=== PATIENT | female | born 1945 | race Caucasian/White ===

== ENCOUNTER 2017-05-07 12:54 | Day surgery (SDC) | payer OTHER ==
[2017-05-03 14:53] VITALS: BMI 26.6
[2017-05-07 14:08] VITALS: BP 120/64; PULSE 88; TEMP 98
--- NOTE | 2017-05-07 17:36 | EKG ---
Test Reason : Blood Pressure : / mmHG Vent. Rate : 077 BPM Atrial Rate : 077 BPM P-R Int : 130 ms QRS Dur : 072 ms QT Int : 380 ms P-R-T Axes : 048 011 037 degrees QTc Int : 430 ms NORMAL SINUS RHYTHM MINIMAL VOLTAGE CRITERIA FOR LVH, MAY BE NORMAL VARIANT BORDERLINE ECG NO PREVIOUS ECGS AVAILABLE Confirmed by PEBBLES VALENTE MD ([id number]) on 05/07/2017 5:36:18 PM Referred By: JIMMY VAUGHN Confirmed By:PEBBLES VALENTE MD
== END 2017-05-07 15:21 | disposition home or self-care (01) ==
LOC: JASUSAT 12:54 → UNDOADMIN 12:54 → JSAMEDAYSX 12:54 → EDSTATUS 14:15 → UNDODISIN 15:21 → JASUSAT 15:21
PROVIDERS: ATTEND Orthopaedic Surgery Orthopaedic Surgery of the Spine
PROC: 0SJ Lower Joints, Inspection (ICD-10-PCS; principal; 2017-05-07)
DX: Z53.8 Procedure and treatment not carried out for other reasons (principal)
CPT/HCPCS: 86850; 86900; 86901; 93005; 93010

== ENCOUNTER 2017-05-14 09:48 | Inpatient (IN) | payer OTHER ==
[2017-05-10 12:46] VITALS: BMI 26.6
[2017-05-14] MEDS ORDERED: HEPARIN NA (PORCINE) 5,000 UNITS/ML 1ML VIAL ONE ×2 (13:24→16:40)
[2017-05-14] MEDS ORDERED: THROMBIN (BOVINE) 5,000 UNIT VIAL TP ONE (13:24)
[2017-05-14] MEDS ORDERED: SUCCINYLCHOLINE CHLORIDE 200 MG/10 ML VIAL ONE (13:52)
[2017-05-14] MEDS ORDERED: fentaNYL CITRATE 250 MCG/5 ML VIAL ONE (13:52)
[2017-05-14] MEDS ORDERED: PROPOFOL 20 ML ONE ×18 (13:52→18:24)
[2017-05-14] MEDS ORDERED: MIDAZOLAM HCL 2 MG/2 ML SINGLE DOSE VIAL ONE ×2 (13:52→15:45)
[2017-05-14] MEDS ORDERED: LIDOCAINE HCL/PF 2% SDV 5ML VIAL ONE (13:53)
[2017-05-14] MEDS ORDERED: ceFAZolin SODIUM 1 GM VIAL ONE ×2 (13:57→23:06)
[2017-05-14] MEDS ORDERED: VANCOMYCIN 1,000 MG VIAL (RESTRICTED TO ID ONLY) ONE (13:58)
[2017-05-14] MEDS ORDERED: VANCOMYCIN 1,000 MG VIAL (RESTRICTED TO ID ONLY) IVPB ONE (14:55)
[2017-05-14] MEDS ORDERED: ePHEDrine SULFATE 50 MG/1 ML AMPULE ONE (15:00)
[2017-05-14] MEDS ORDERED: ceFAZolin SODIUM 1 GM VIAL IVPB ONE (15:05)
[2017-05-14] MEDS ORDERED: DEXAMETHASONE SOD PHOSPHATE 4 MG/1 ML VIAL ONE (15:34)
[2017-05-14] MEDS ORDERED: TRANEXAMIC ACID 1000 MG/10 ML VIAL ONE ×2 (15:51→17:15)
[2017-05-14] MEDS ORDERED: PHENYLEPHRINE HCL 10 MG/1 ML SINGLE DOSE VIAL ONE (20:13)
[2017-05-14] MEDS ORDERED: ONDANSETRON 4 MG/2 ML VIAL ONE (20:13)
[2017-05-14] MEDS ORDERED: ONDANSETRON 4 MG/2 ML VIAL IVPUSH PRN ×2 (20:28→21:36)
[2017-05-14] MEDS ORDERED: ACETAMINOPHEN 1000 MG/100 ML VIAL (NON FORMULARY) IVPB SCH (20:30)
[2017-05-14] MEDS ORDERED: LACTATED RINGERS SOLUTION 1,000 ML IV SCH (20:30)
--- NOTE | 2017-05-14 20:40 | PN ---
Progress Note (short form) - Note Progress Note: 71F s/p L2-S1 laminectomies & posterior decompression, Beard-Macias Osteotomies T10/T11, L1/2, L2/3, L3/4, L4/5, T6-S1 PISF POD #0. -Pain control. -Mechanical DVT PPx. only: GEETHA's, SCD's. -Incentive spirometry. -PT/OT/Rehab, OOB. -WBAT B/L UE & LE. -Medina care; d/c medina when ambulating. -NPO until flatus. -Kiah-op antibiotics: ANCEF & VANCOMYCIN.. -Admit to ICU. -Care per medical hospitalist team when out of ICU. -Will follow. Lauri Connors MD (Orthopaedic Surgery).
--- NOTE | 2017-05-14 20:44 | OP ---
Operative Note - Note: Operative Date: 05/14/17 Pre-Operative Diagnosis: Lumbar stenosis. Femoral neuropathy. Adult degenerative scoliosis Operation: L2-S1 laminectomies & posterior decompression. Beard-Macias Osteotomies T10/T11, L1/2, L2/3, L3/4, L4/5. T6-S1 Posterior Instrumented Spinal Fusion. Bone autograft. Allograft Findings: Intake: 2U PRBC 450cc Cell Saver 4L crystalloid EBL: 1600cc Post-Operative Diagnosis: Same as Pre-op Surgeon: Xiang Connors Human Resources Representative: Lauri Connors Anesthesiologist/TOPOLOGY PROFESSOR: Juan Ramon Lopez Anesthesia: General Specimens Removed: Bone. Soft tissue Estimated Blood Loss (mls): 1,600 Drains & Tubes with Location: 1 x superficial HemoVac
[2017-05-14] MEDS ORDERED: PROMETHAZINE HCL 25 MG/1 ML VIAL IVPUSH PRN (21:04)
[2017-05-14] MEDS ORDERED: HYDROmorphone *PCA* 10MG/50ML DISP.SYRIN PCA SCH (21:15)
[2017-05-14] MEDS ORDERED: HYDROmorphone *PCA* 6MG/30ML DISP.SYRIN PCA ONE (21:17)
[2017-05-14] MEDS ORDERED: ACETAMINOPHEN INJECTION 100 ML IVPB ONE (21:18)
[2017-05-14] MEDS: LACTATED RINGERS SOLUTION 1,000 ML IV SCH (21:30)
[2017-05-14] MEDS ORDERED: amLODIPine BESYLATE 5 MG TABLET (FP) PO SCH ×2 (22:00)
[2017-05-14] MEDS: CEFAZOLIN 1 GM PUSH 1 GM/10 ML DISP.SYRIN IVPUSH SCH (23:00)
[2017-05-14] MEDS ORDERED: CEFAZOLIN 1 GM PUSH 1 GM/10 ML SYRINGE IVPUSH SCH (23:30)
[2017-05-15] MEDS: VANCOMYCIN 1,000 MG in DEXTROSE 5%-WATER - 250 ML IVPB SCH ×2 (01:54→16:33)
[2017-05-15] MEDS ORDERED: VANCOMYCIN 1,000 MG in DEXTROSE 5%-WATER - 250 ML IVPB ONE (02:00)
[2017-05-15] MEDS ORDERED: VANCOMYCIN 1,000 MG in DEXTROSE 5%-WATER - 250 ML IVPB SCH (02:00)
[2017-05-15 06:25] LABS: HEMATOCRIT 37.2 % (32.4-45.2); HEMOGLOBIN 12.8 GM/dL (10.7-15.3); MCH 30.8 pg (25.7-33.7); MCHC 34.3 g/dl (32.0-36.0); MEAN CELL VOLUME 89.7 fl (80-96); MEAN PLT VOLUME 8.6 fl (7.5-11.1); PLATELET COUNT 166 K/MM3 (134-434); RBC 4.14 M/mm3 (3.60-5.2); WHITE BLOOD COUNT 10.6 K/mm3 (4.0-10.0)
[2017-05-15] MEDS: LACTATED RINGERS SOLUTION 1,000 ML IV SCH ×2 (06:41→08:50)
[2017-05-15] MEDS: CEFAZOLIN 1 GM PUSH 1 GM/10 ML DISP.SYRIN IVPUSH SCH ×2 (06:42→09:47)
[2017-05-15] MEDS: ACETAMINOPHEN 1000 MG/100 ML VIAL (NON FORMULARY) IVPB SCH ×2 (06:51→12:18)
[2017-05-15] MEDS: LEVOTHYROXINE NA 100 MCG TABLET (FP) PO SCH (06:52)
[2017-05-15 06:55] LABS: ANION GAP 5 (8-16); BLOOD UREA NITROGEN 16 mg/dL (7-18); CALCIUM 7.8 mg/dL (8.5-10.1); CHLORIDE 106 mmol/L (98-107); CO2 28 mmol/L (21-32); CREATININE 0.6 mg/dL (0.55-1.02); GLUCOSE,RANDOM 141 mg/dL (74-106); POTASSIUM 4.5 mmol/L (3.5-5.1); SODIUM 139 mmol/L (136-145)
[2017-05-15] MEDS ORDERED: LEVOTHYROXINE NA 100 MCG TABLET (FP) PO SCH (07:00)
--- NOTE | 2017-05-15 08:32 | PN ---
Progress Note, Physician Chief Complaint: s/p T4-Pelvis PILF post op day one History of Present Illness: general anesthesia with dilaudid cost recovery technician for post op pain control - Current Medication List Current Medications: Active Medications Acetaminophen (Ofirmev Injection -) 1,000 mg IVPB Q8H [facility] Stop: 05/15/17 12:31 Last Admin: 05/15/17 06:51 Dose: 1,000 mg Amlodipine Besylate (Norvasc -) 5 mg PO HS [facility] Chlorhexidine Gluconate (Hibiclens For Decolonization -) 1 applic TP HS [facility] Hydromorphone HCl (Dilaudid Lead Generation Marketing Manager -) 0 mg PSYCHIATRIC ASSISTANT PSYCHIATRIC ASSISTANT [facility] PRN Reason: Protocol Stop: 05/21/17 21:06 Last Admin: 05/14/17 21:30 Dose: 0 mg Lactated Ringer's (Lactated Ringers Solution) 1,000 mls @ 75 mls/hr IV ASDIR [facility] Last Admin: 05/15/17 06:41 Dose: 75 mls/hr Vancomycin HCl 1,000 mg/ (Dextrose) 250 mls @ 250 mls/hr IVPB BID@0200,1400 [facility] PRN Reason: Protocol Stop: 05/15/17 14:59 Last Admin: 05/15/17 01:54 Dose: 250 mls/hr Cefazolin Sodium (Ancef -) 1 gm in 10 mls @ 120 mls/hr IVPUSH Q6H [facility] Stop: 05/15/17 10:49 Last Admin: 05/15/17 06:42 Dose: 120 mls/hr Levothyroxine Sodium (Synthroid -) 100 mcg PO DAILY@0700 [facility] Last Admin: 05/15/17 06:52 Dose: 100 mcg Mupirocin (Bactroban Ointment (For Decolonization) -) 1 applic NS BID [facility] Stop: 05/20/17 09:59 Ondansetron HCl (Zofran Injection) 4 mg IVPUSH Q6H PRN PRN Reason: NAUSEA AND/OR VOMITING Ondansetron HCl (Zofran Injection) 4 mg IVPUSH Q6H PRN PRN Reason: NAUSEA AND/OR VOMITING Promethazine HCl (Phenergan Injection -) 12.5 mg IVPUSH Q6H PRN PRN Reason: NAUSEA-FOR RESCUE AFTER 15 MIN - Objective Vital Signs: Vital Signs Temperature 97.7 F 05/15/17 08:00 Pulse Rate 77 05/15/17 08:00 Respiratory Rate 18 05/15/17 08:00 Blood Pressure 89/50 05/15/17 08:00 O2 Sat by Pulse Oximetry (%) 98 05/15/17 01:38 Constitutional: Yes: Well Nourished Cardiovascular: Yes: WNL Respiratory: Yes: WNL Gastrointestinal: Yes: WNL Labs: CBC, BMP 05/15/17 05:55 05/15/17 05:55 Assessment/Plan Patient reports pain relieved by staying on her side, using the cost recovery technician, not eating yet, advised to use cost recovery technician as much as needed, no adverse effect of anesthetic, will continue cost recovery technician for at least another day until patient is eating a diet.
--- NOTE | 2017-05-15 09:04 | PN ---
Progress Note, Physician History of Present Illness: POD 1 from spinal fusion surgery and L/S laminectomy. Patient doing well. Good pain control. Feels tired. No fevers, chills. - Current Medication List Current Medications: Active Medications Acetaminophen (Ofirmev Injection -) 1,000 mg IVPB Q8H [facility] Stop: 05/15/17 12:31 Last Admin: 05/15/17 06:51 Dose: 1,000 mg Amlodipine Besylate (Norvasc -) 5 mg PO HS [facility] Chlorhexidine Gluconate (Hibiclens For Decolonization -) 1 applic TP HS [facility] Hydromorphone HCl (Dilaudid Emergency Medicine -) 0 mg MANAGER CONTINUOUS IMPROVEMENT MANAGER CONTINUOUS IMPROVEMENT [facility] PRN Reason: Protocol Stop: 05/21/17 21:06 Last Admin: 05/14/17 21:30 Dose: 0 mg Vancomycin HCl 1,000 mg/ (Dextrose) 250 mls @ 250 mls/hr IVPB BID@0200,1400 [facility] PRN Reason: Protocol Stop: 05/15/17 14:59 Last Admin: 05/15/17 01:54 Dose: 250 mls/hr Cefazolin Sodium (Ancef -) 1 gm in 10 mls @ 120 mls/hr IVPUSH Q6H [facility] Stop: 05/15/17 10:49 Last Admin: 05/15/17 06:42 Dose: 120 mls/hr Lactated Ringer's (Lactated Ringers Solution) 1,000 mls @ 125 mls/hr IV ASDIR [facility] Levothyroxine Sodium (Synthroid -) 100 mcg PO DAILY@0700 [facility] Last Admin: 05/15/17 06:52 Dose: 100 mcg Mupirocin (Bactroban Ointment (For Decolonization) -) 1 applic NS BID [facility] Stop: 05/20/17 09:59 Ondansetron HCl (Zofran Injection) 4 mg IVPUSH Q6H PRN PRN Reason: NAUSEA AND/OR VOMITING Ondansetron HCl (Zofran Injection) 4 mg IVPUSH Q6H PRN PRN Reason: NAUSEA AND/OR VOMITING Promethazine HCl (Phenergan Injection -) 12.5 mg IVPUSH Q6H PRN PRN Reason: NAUSEA-FOR RESCUE AFTER 15 MIN - Objective Vital Signs: Vital Signs Temperature 97.7 F 05/15/17 08:00 Pulse Rate 77 02/13/18 08:00 Respiratory Rate 18 05/15/17 08:00 Blood Pressure 89/50 05/15/17 08:00 O2 Sat by Pulse Oximetry (%) 98 05/15/17 08:00 Additional Findings/Remarks: GEN: AAOx3, NAD, Lying comfortably, appears tired HEENT: PERRLA, EOMi CV: S1, S2, RRR LUNG: CTABL ABD; Soft, NT, ND, normoactive BS MSK: No edema, no erythema NEURO: CN 2-12 Labs: CBC, BMP 05/15/17 05:55 05/15/17 05:55 Assessment/Plan 71yo F who is s/p spinal fusion surgery and L/S laminectomy. EBL 1600. # Neuro: POD 1 from spinal surgery -- EBL 1600. BP has been 90s, at times <90. Will increase fluids to 125cc/hr to improve BP -- Draining 60cc last night -- Pain control w/ MANAGER CONTINUOUS IMPROVEMENT Dilaudid and IV Tylenol # CV: HTN -- Currently BP is trending 80s-90s. Will give LR bolus 1L, and continue LR 125cc/hr -- Hold Amlodipine for now # Endo: Hypothyroidism -- Continue Levo # FEN/PPX -- LR 125cc/hr, NPO, needs to ADAT -- SCDs, no GI ppx #Dispo -- Leave patient for another night to monitor BP. Clara Gabriel MD - PGY1 ICU Resident
[2017-05-15] MEDS ORDERED: HYDROmorphone *PCA* 6MG/30ML DISP.SYRIN PCA ONE (09:22)
[2017-05-15] MEDS: MUPIROCIN 2% TOPICAL OINTMENT FOR DECOLONIZATION NS SCH ×2 (09:47→23:35)
[2017-05-15] MEDS ORDERED: PT OWN MED DRAWER 7, Y5N ONE ×2 (10:44→13:54)
[2017-05-15] MEDS: HYDROmorphone *PCA* 6MG/30ML DISP.SYRIN PCA SCH (13:00)
--- NOTE | 2017-05-15 13:23 | PN ---
Teaching Attending Note Name of Resident: Clara Gabriel ATTENDING PHYSICIAN STATEMENT I saw and evaluated the patient. I reviewed the resident's note and discussed the case with the resident. I agree with the resident's findings and plan as documented. SUBJECTIVE: Pt seen and examined in the ICU. Pain controlled as long as she is not moved. Denies shortness of breath or chest pain. No fevers or chills. Tolerating PO. Passing flatus. OBJECTIVE: Last Vital Signs Temp Pulse Resp BP Pulse Ox 98.7 F 76 19 84/51 98 05/15/17 12:00 05/15/17 13:00 05/15/17 13:00 05/15/17 13:00 05/15/17 08:00 Intake & Output 05/12/17 05/13/17 05/14/17 05/15/17 23:59 23:59 23:59 23:59 Intake Total 4275 1160 Output Total 2160 910 Balance 2115 250 Gen: NAD at rest Heart: RRR Lung: decreased breath sounds at the bases Abd: soft, nontender Ext: no edema Drains serosanguinous CBC, BMP 05/15/17 05:55 05/15/17 05:55 Active Medications Amlodipine Besylate (Norvasc -) 5 mg PO HS [facility] Chlorhexidine Gluconate (Hibiclens For Decolonization -) 1 applic TP HS [facility] Hydromorphone HCl (Dilaudid Internet Technology Manager -) 6 mg FLAT BED KNITTER FLAT BED KNITTER [facility] PRN Reason: Protocol Stop: 05/21/17 21:06 Last Admin: 05/15/17 13:00 Dose: 6 mg Vancomycin HCl 1,000 mg/ (Dextrose) 250 mls @ 250 mls/hr IVPB BID@0200,1400 [facility] PRN Reason: Protocol Stop: 05/15/17 14:59 Last Admin: 05/15/17 01:54 Dose: 250 mls/hr Lactated Ringer's (Lactated Ringers Solution) 1,000 mls @ 125 mls/hr IV ASDIR [facility] Last Admin: 05/15/17 08:50 Dose: 125 mls/hr Levothyroxine Sodium (Synthroid -) 100 mcg PO DAILY@0700 [facility] Last Admin: 05/15/17 06:52 Dose: 100 mcg Mupirocin (Bactroban Ointment (For Decolonization) -) 1 applic NS BID [facility] Stop: 05/20/17 09:59 Last Admin: 05/15/17 09:47 Dose: 1 applic Ondansetron HCl (Zofran Injection) 4 mg IVPUSH Q6H PRN PRN Reason: NAUSEA AND/OR VOMITING Ondansetron HCl (Zofran Injection) 4 mg IVPUSH Q6H PRN PRN Reason: NAUSEA AND/OR VOMITING Promethazine HCl (Phenergan Injection -) 12.5 mg IVPUSH Q6H PRN PRN Reason: NAUSEA-FOR RESCUE AFTER 15 MIN ASSESSMENT AND PLAN: Lumbar Stenosis s/p L2-S1 Laminectomy/Posterior Decompression/Osteotomies Hypothyroidism HTN - pain control - incentive spirometry - monitor drain output - continue home meds - PO as tolerated - OOB/medina/DVT prophylaxis per surgery
[2017-05-15] MEDS ORDERED: LACTATED RINGERS SOLUTION 1,000 ML/1,000 ML INFUS.BAG IV STA (13:58)
[2017-05-15] MEDS: CHLORHEXIDINE GLUCONATE 4% CLEANSER FOR DECOLONIZATION TP SCH (23:35)
[2017-05-15] MEDS: amLODIPine BESYLATE 5 MG TABLET (FP) PO SCH (23:36)
[2017-05-16] MEDS: ONDANSETRON 4 MG/2 ML VIAL IVPUSH PRN ×2 (04:51→09:29)
[2017-05-16 06:28] LABS: HEMATOCRIT 32.2 % (32.4-45.2); HEMOGLOBIN 10.9 GM/dL (10.7-15.3); MCH 30.5 pg (25.7-33.7); MCHC 33.8 g/dl (32.0-36.0); MEAN CELL VOLUME 90.2 fl (80-96); MEAN PLT VOLUME 9.2 fl (7.5-11.1); PLATELET COUNT 129 K/MM3 (134-434); RBC 3.57 M/mm3 (3.60-5.2); RDW 14.9 % (11.6-15.6); WHITE BLOOD COUNT 10.5 K/mm3 (4.0-10.0)
[2017-05-16 06:48] LABS: CHLORIDE 105 mmol/L (98-107); POTASSIUM 4.1 mmol/L (3.5-5.1); SODIUM 139 mmol/L (136-145)
[2017-05-16 06:54] LABS: ALBUMIN 2.3 g/dl (3.4-5.0); ALK PHOS 64 U/L (45-117); ANION GAP 6 (8-16); BILIRUBIN,TOTAL 0.8 mg/dL (0.2-1.0); BLOOD UREA NITROGEN 11 mg/dL (7-18); CALCIUM 8.4 mg/dL (8.5-10.1); CO2 28 mmol/L (21-32); CREATININE 0.5 mg/dL (0.55-1.02); GLUCOSE,RANDOM 126 mg/dL (74-106); MAGNESIUM 1.6 mg/dL (1.8-2.4); SGOT/AST 41 U/L (15-37); SGPT/ALT 24 U/L (12-78)
[2017-05-16] MEDS: LEVOTHYROXINE NA 100 MCG TABLET (FP) PO SCH (07:13)
[2017-05-16] MEDS: LACTATED RINGERS SOLUTION 1,000 ML IV SCH (07:51)
[2017-05-16] MEDS: HYDROmorphone *PCA* 6MG/30ML DISP.SYRIN PCA SCH ×2 (09:27→13:00)
[2017-05-16] MEDS: MUPIROCIN 2% TOPICAL OINTMENT FOR DECOLONIZATION NS SCH ×2 (09:28→21:58)
[2017-05-16] MEDS ORDERED: LACTATED RINGERS SOLUTION 1,000 ML/1,000 ML INFUS.BAG IV STA (12:02)
[2017-05-16] MEDS ORDERED: SODIUM CHLORIDE 1,000 ML IV STA (12:04)
--- NOTE | 2017-05-16 13:19 | PN ---
Teaching Attending Note Name of Resident: Clara Gabriel ATTENDING PHYSICIAN STATEMENT I saw and evaluated the patient. I reviewed the resident's note and discussed the case with the resident. I agree with the resident's findings and plan as documented. SUBJECTIVE: Pt seen and examined in the ICU. Pain controlled with current regimen. Some nausea after eating fluids. +flatus. No fevers or chills. OBJECTIVE: Last Vital Signs Temp Pulse Resp BP Pulse Ox 98.1 F 84 16 99/57 100 05/16/17 12:00 05/16/17 12:00 05/16/17 12:00 05/16/17 12:00 05/16/17 08:00 Intake & Output 05/13/17 05/14/17 05/15/17 05/16/17 23:59 23:59 23:59 23:59 Intake Total 4275 3910 1450 Output Total 2160 1250 80 Balance 2115 2660 1370 Weight 79.288 kg Gen: NAD at rest Heart: RRR Lung: decreased breath sounds at the bases Abd: soft, nontender Ext: no edema Drain with serosanguinous fluid CBC, BMP 05/16/17 05:50 05/16/17 05:50 Active Medications Amlodipine Besylate (Norvasc -) 5 mg PO HS [facility] Last Admin: 05/15/17 23:36 Dose: Not Given Chlorhexidine Gluconate (Hibiclens For Decolonization -) 1 applic TP HS [facility] Last Admin: 05/15/17 23:35 Dose: 1 applic Hydromorphone HCl (Dilaudid Uniform Room Attendant -) 6 mg DOUBLE NEEDLE OPERATOR LOCKSTITCH DOUBLE NEEDLE OPERATOR LOCKSTITCH [facility] PRN Reason: Protocol Stop: 05/21/17 21:06 Last Admin: 05/16/17 09:27 Dose: 6 mg Levothyroxine Sodium (Synthroid -) 100 mcg PO DAILY@0700 [facility] Last Admin: 05/16/17 07:13 Dose: 100 mcg Mupirocin (Bactroban Ointment (For Decolonization) -) 1 applic NS BID [facility] Stop: 05/20/17 09:59 Last Admin: 05/16/17 09:28 Dose: 1 applic Ondansetron HCl (Zofran Injection) 4 mg IVPUSH Q6H PRN PRN Reason: NAUSEA AND/OR VOMITING Promethazine HCl (Phenergan Injection -) 12.5 mg IVPUSH Q6H PRN PRN Reason: NAUSEA-FOR RESCUE AFTER 15 MIN ASSESSMENT AND PLAN: Lumbar Stenosis s/p L2-S1 Laminectomy/Posterior Decompression/Osteotomies Hypothyroidism HTN - pain control - incentive spirometry - monitor drain output - continue home meds - advance diet as tolerated - antiemetics - activity/DVT prophylaxis per surgery
--- NOTE | 2017-05-16 15:11 | PN ---
Progress Note, Physician History of Present Illness: POD 2 from spinal fusion surgery and L/S laminectomy. Patient continues to do well. Good pain control. Feels nauseous, resolved with Zofran - Current Medication List Current Medications: Active Medications Amlodipine Besylate (Norvasc -) 5 mg PO HS [facility] Last Admin: 05/15/17 23:36 Dose: Not Given Chlorhexidine Gluconate (Hibiclens For Decolonization -) 1 applic TP [facility] Last Admin: 05/15/17 23:35 Dose: 1 applic Hydromorphone HCl (Dilaudid Marketing Development Specialist -) 6 mg HYBRID CORN BREEDER HYBRID CORN BREEDER [facility] PRN Reason: Protocol Stop: 05/21/17 21:06 Last Admin: 05/16/17 13:00 Dose: Not Given Levothyroxine Sodium (Synthroid -) 100 mcg PO DAILY@0700 [facility] Last Admin: 05/16/17 07:13 Dose: 100 mcg Mupirocin (Bactroban Ointment (For Decolonization) -) 1 applic NS BID [facility] Stop: 05/20/17 09:59 Last Admin: 05/16/17 09:28 Dose: 1 applic Ondansetron HCl (Zofran Injection) 4 mg IVPUSH Q6H PRN PRN Reason: NAUSEA AND/OR VOMITING Promethazine HCl (Phenergan Injection -) 12.5 mg IVPUSH Q6H PRN PRN Reason: NAUSEA-FOR RESCUE AFTER 15 MIN - Objective Vital Signs: Vital Signs Temperature 98.2 F 05/16/17 14:00 Pulse Rate 81 05/16/17 14:00 Respiratory Rate 17 05/16/17 14:00 Blood Pressure 99/57 05/16/17 14:00 O2 Sat by Pulse Oximetry (%) 100 05/16/17 08:00 Additional Findings/Remarks: GEN: AAOx3, NAD, Lying comfortably HEENT: PERRLA, EOMi CV: S1, S2, RRR LUNG: CTABL ABD: Soft, NT, ND, normoactive BS MSK: No edema, no erythema, drain in place NEURO: CN 2-12 intact Labs: CBC, BMP 05/16/17 05:50 05/16/17 05:50 Assessment/Plan 71yo F who is s/p spinal fusion surgery and L/S laminectomy. EBL 1600. # Neuro: POD 2 from spinal surgery -- Pain well controlled -- Physical therapy, neuro checks # CV: HTN -- Given another bolus this AM for low BPs. -- Will continue to give fluids LR 125cc/hr. -- Hold Amlodipine for now # Endo: Hypothyroidism -- Continue Levo # FEN/PPX -- LR 125cc/hr, advanced to soft diet -- SCDs, no GI ppx #Dispo -- Wait for ortho eval prior to discharge Clara Gabriel MD PGY1 ICU Resident
--- NOTE | 2017-05-16 15:28 | PN ---
Progress Note (short form) - Note Progress Note: Anesthesia Post op/Pain Pt seen and examined S:Alert and awake O: CBC, BMP 05/16/17 05:50 05/16/17 05:50 Vital Signs Temperature 98.2 F 05/16/17 14:00 Pulse Rate 81 05/16/17 14:00 Respiratory Rate 17 05/16/17 14:00 Blood Pressure 99/57 05/16/17 14:00 O2 Sat by Pulse Oximetry (%) 100 05/16/17 08:00 A/P: s/pT4-Pelvis fusion post lumbar interbody fusion Doing well post op Continue current care Continue AUDIO ENGINEER Juan Ramon Lopez MD
[2017-05-16] MEDS ORDERED: MAGNESIUM SULF 50% (8.12 MEQ/2 ML-1 GM VIAL) IVPB ONE (15:45)
[2017-05-16] MEDS ORDERED: NAPH,MB-DB/K PH,MBDB POWDER PACKET PO ONE (15:45)
[2017-05-16] MEDS: LACTATED RINGERS SOLUTION 1,000 ML/1,000 ML INFUS.BAG IV SCH (17:15)
[2017-05-16] MEDS ORDERED: SODIUM CHLORIDE 500 ML IV STA (20:17)
[2017-05-16] MEDS: amLODIPine BESYLATE 5 MG TABLET (FP) PO SCH (21:57)
[2017-05-16] MEDS: CHLORHEXIDINE GLUCONATE 4% CLEANSER FOR DECOLONIZATION TP SCH (21:59)
--- NOTE | 2017-05-16 22:42 | PN ---
Progress Note (short form) - Note Progress Note: 71F s/p L2-S1 laminectomies & posterior decompression, Beard-Macias Osteotomies T10/T11, L1/2, L2/3, L3/4, L4/5, T6-S1 PISF POD #2. Pain well controlled. No acute events overnight. Pt. denies overnight history of chest pain, shortness of breath, nausea, vomiting, chills, & sweats. (+) Voiding; (?) Flatus; (?) Stool. All labs and vitals reviewed. PE: AAO x 3, NAD. Back: Dressing & drain C/D/I. NV assessment: at baseline. 71F s/p L2-S1 laminectomies & posterior decompression, Beard-Macias Osteotomies T10/T11, L1/2, L2/3, L3/4, L4/5, T6-S1 PISF POD #2. -Pain control. -Mechanical DVT PPx. only: GEETHA's, SCD's. -Incentive spirometry. -PT/OT/Rehab, OOB. -WBAT B/L UE & LE. -Soft, diabetic diet as tolerated. -Care per ICU, medical hospitalist & cardiology teams. -Will follow. Lauri Connors MD (Orthopaedic Surgery).
[2017-05-17] MEDS ORDERED: ACETAMINOPHEN 1000 MG/100 ML VIAL (NON FORMULARY) IVPB PRN (02:00)
[2017-05-17] MEDS: LACTATED RINGERS SOLUTION 1,000 ML/1,000 ML INFUS.BAG IV SCH ×4 (03:30→22:09)
[2017-05-17] MEDS: HYDROmorphone *PCA* 6MG/30ML DISP.SYRIN PCA SCH ×3 (03:30→16:11)
[2017-05-17] MEDS: LEVOTHYROXINE NA 100 MCG TABLET (FP) PO SCH (06:05)
[2017-05-17 06:48] LABS: HEMATOCRIT 27.4 % (32.4-45.2); HEMOGLOBIN 9.5 GM/dL (10.7-15.3); MCH 31.2 pg (25.7-33.7); MCHC 34.7 g/dl (32.0-36.0); MEAN CELL VOLUME 89.9 fl (80-96); MEAN PLT VOLUME 9.4 fl (7.5-11.1); PLATELET COUNT 110 K/MM3 (134-434); RBC 3.04 M/mm3 (3.60-5.2); RDW 14.9 % (11.6-15.6); WHITE BLOOD COUNT 9.8 K/mm3 (4.0-10.0)
[2017-05-17 07:12] LABS: ANION GAP 4 (8-16); BLOOD UREA NITROGEN 10 mg/dL (7-18); CALCIUM 7.5 mg/dL (8.5-10.1); CHLORIDE 107 mmol/L (98-107); CO2 31 mmol/L (21-32); CREATININE 0.4 mg/dL (0.55-1.02); GLUCOSE,RANDOM 109 mg/dL (74-106); PHOSPHOROUS 2.2 mg/dL (2.5-4.9); POTASSIUM 3.9 mmol/L (3.5-5.1); SODIUM 142 mmol/L (136-145)
[2017-05-17 07:35] LABS: MAGNESIUM 1.8 mg/dL (1.8-2.4)
[2017-05-17] MEDS ORDERED: NAPH,MB-DB/K PH,MBDB POWDER PACKET PO ONE ×2 (07:52→10:15)
[2017-05-17] MEDS ORDERED: MAGNESIUM OXIDE 400 MG TABLET (FP) PO ONE (09:00)
[2017-05-17] MEDS ORDERED: SENNOSIDES/DOCUSATE COMBO (SENNA PLUS) TABLET (UD) PO PRN (09:43)
[2017-05-17] MEDS: MUPIROCIN 2% TOPICAL OINTMENT FOR DECOLONIZATION NS SCH (10:16)
[2017-05-17] MEDS ORDERED: SENNOSIDES 8.6MG TABLET (FP) PO PRN (11:46)
--- NOTE | 2017-05-17 12:59 | PN ---
Teaching Attending Note Name of Resident: Clara Gabriel ATTENDING PHYSICIAN STATEMENT I saw and evaluated the patient. I reviewed the resident's note and discussed the case with the resident. I agree with the resident's findings and plan as documented. SUBJECTIVE: Pt seen and examined in the ICU. Pain controlled. Nausea improved. +flatus. OBJECTIVE: Last Vital Signs Temp Pulse Resp BP Pulse Ox 98.6 F 88 20 119/52 97 05/17/17 12:57 05/17/17 12:57 05/17/17 12:57 05/17/17 12:57 05/17/17 09:00 Intake & Output 05/14/17 05/15/17 05/16/17 05/17/17 23:59 23:59 23:59 23:59 Intake Total 4275 3910 4550 1500 Output Total 2160 1250 1935 1050 Balance 2115 2660 2615 450 Weight 79.288 kg Gen: NAD at rest Heart: RRR Lung: decreased breath sounds at the bases Abd: soft, nontender Ext: no edema CBC, BMP 05/17/17 05:57 05/17/17 05:57 Active Medications Acetaminophen (Ofirmev Injection -) 1,000 mg IVPB Q6H PRN PRN Reason: BACK PAIN Last Admin: 05/17/17 02:06 Dose: 1,000 mg Amlodipine Besylate (Norvasc -) 5 mg PO HS [facility] Last Admin: 05/16/17 21:57 Dose: Not Given Chlorhexidine Gluconate (Hibiclens For Decolonization -) 1 applic TP HS [facility] Last Admin: 05/16/17 21:59 Dose: 1 applic Hydromorphone HCl (Dilaudid Anthropology Department Chair -) 6 mg SERVOMECHANISM ASSEMBLER SERVOMECHANISM ASSEMBLER [facility] PRN Reason: Protocol Stop: 05/21/17 21:06 Last Admin: 05/17/17 12:42 Dose: Not Given Lactated Ringer's (Lactated Ringers Solution) 1,000 ml in 1,000 mls @ 100 mls/ hr IV [facility]IR [facility] Last Admin: 05/17/17 12:48 Dose: 100 mls/hr Levothyroxine Sodium (Synthroid -) 100 mcg PO DAILY@0700 [facility] Last Admin: 05/17/17 06:05 Dose: 100 mcg Mupirocin (Bactroban Ointment (For Decolonization) -) 1 applic NS BID [facility] Stop: 05/20/17 09:59 Last Admin: 05/17/17 10:16 Dose: 1 applic Ondansetron HCl (Zofran Injection) 4 mg IVPUSH Q6H PRN PRN Reason: NAUSEA AND/OR VOMITING Promethazine HCl (Phenergan Injection -) 12.5 mg IVPUSH Q6H PRN PRN Reason: NAUSEA-FOR RESCUE AFTER 15 MIN Senna (Senna -) 1 tab PO BID PRN PRN Reason: CONSTIPATION ASSESSMENT AND PLAN: Lumbar Stenosis s/p L2-S1 Laminectomy/Posterior Decompression/Osteotomies Hypothyroidism HTN - pain control - incentive spirometry - monitor drain output - continue home meds - PO as tolerated - OOB/emdina/DVT prophylaxis per surgery
--- NOTE | 2017-05-17 13:07 | PN ---
Physical Exam: SUBJECTIVE: Patient seen and examined in ICU. She is feeling good today, complaining of back pain 6/10, relieved with pain medications when pressing. The pt denies SOB, chest pain, palpitations. She denies weakness, numbness in extremities. No more fevers, episodes of hypotension. PMH: HTN, hypothyroidism PSH;knee replacement B/l SH:no cig/alcohol/illicid drugs retired OBJECTIVE: Vital Signs Period Temp Pulse Resp BP Sys/Burgess Pulse Ox Last 24 Hr 98.0 F-100.8 F 75-88 15-22 73-111/48-75 97-97 GENERAL: The patient is awake, alert, and fully oriented, in no acute distress. HEAD: Normal with no signs of trauma. EYES: PERRL, extraocular movements intact, sclera anicteric, conjunctiva clear. ENT: oropharynx clear without exudates, moist mucous membranes. NECK: Trachea midline, full range of motion, supple. LUNGS: Breath sounds equal, clear to auscultation bilaterally, no wheezes, no crackles, no accessory muscle use. HEART: Regular rate and rhythm, S1, S2 without murmur, rub or gallop. ABDOMEN: Soft, nontender, nondistended, normoactive bowel sounds, no guarding, no rebound, no hepatosplenomegaly, no masses. EXTREMITIES: warm, no edema. NEUROLOGICAL: Normal speech, no facial asymmetry, motor 5/5, sensation intact, gait not observed. PSYCH: Normal mood, normal affect. SKIN: Warm, dry, normal turgor, no rashes, dressing applied in the back, drain applied, draining sanguineous fluid. Laboratory Results - last 24 hr 05/17/17 05/17/17 05:57 05:57 WBC 9.8 RBC 3.04 L Hgb 9.5 L D Hct 27.4 L MCV 89.9 MCH 31.2 MCHC 34.7 RDW 14.9 Plt Count 110 L MPV 9.4 Sodium 142 Potassium 3.9 Chloride 107 Carbon Dioxide 31 Anion Gap 4 L BUN 10 Creatinine 0.4 L Random Glucose 109 H Calcium 7.5 L Phosphorus 2.2 L Magnesium 1.8 Active Medications Generic Name Dose Route Start Last Admin Trade Name Freq PRN Reason Stop Dose Admin Acetaminophen 1,000 mg 05/17/17 02:00 05/17/17 02:06 Ofirmev Injection - IVPB 1,000 mg Q6H PRN Administration BACK PAIN Amlodipine Besylate 5 mg 05/15/17 22:00 05/16/17 21:57 Norvasc - PO Not Given HS [facility] Chlorhexidine Gluconate 1 applic 05/15/17 22:00 05/16/17 21:59 Hibiclens For Decolonization - TP 1 applic HS [facility] Administration Hydromorphone HCl 6 mg 05/15/17 12:59 05/17/17 12:42 Dilaudid Linotype Mechanic - BRICKLAYER APPRENTICE 05/21/17 21:06 Not Given BRICKLAYER APPRENTICE [facility] Protocol Lactated Ringer's 1,000 ml in 1,000 mls @ 100 mls/hr 05/16/17 17:15 05/17/17 03:30 Lactated Ringers Solution IV 100 mls/hr ASD[facility] Administration Levothyroxine Sodium 100 mcg 05/15/17 07:00 05/17/17 06:05 Synthroid - PO 100 mcg DAILY@0700 [facility] Administration Mupirocin 1 applic 05/15/17 10:00 05/17/17 10:16 Bactroban Ointment (For Decolonization) - NS 05/20/17 09:59 1 applic BID [facility] Administration Ondansetron HCl 4 mg 05/14/17 21:36 Zofran Injection IVPUSH Q6H PRN NAUSEA AND/OR VOMITING Promethazine HCl 12.5 mg 05/14/17 21:04 Phenergan Injection - IVPUSH Q6H PRN NAUSEA-FOR RESCUE AFTER 15 MIN Senna 1 tab 05/17/17 11:46 Senna - PO BID PRN CONSTIPATION ASSESSMENT/PLAN: The pt is a 71 year old female with a PMH of HTN, hypothyroidism, admitted to ICU post2-S1 laminectomies & posterior decompression, Beard-Macias Osteotomies T10/T11, L1/2, L2/3, L3/4, L4/5, T6-S1 PISF POD #3. S/p spine surgery POD 3: -f/u surgery recommendations -incentive spirometer -monitor drain output -pain control, still on BRICKLAYER APPRENTICE pump -finished periop antibiotics -Tylenol given for low grade fever yesterday Hypomagnesemia; repleated, will monitor Hypophosphatemia; -repleated, will follow HTN: -cont IV fluids, recommend to decrease the rate from 100cc/hr since pt is eating and drinking -hold Amlodypine Hypothyroidism: -continue Synthroid 100 mcg qd HDL: -continue Lipitor 20 mg qd DVT PPX; -mechanical prophylaxis only -SCDs F/E/N: NS/no changes/low phos and Mg/low sodium Dispo: monitor in ICU Problem List - Problems (1) S/P laminectomy Code(s): Z98.890 - OTHER SPECIFIED POSTPROCEDURAL STATES (2) Hypertension Code(s): I10 - ESSENTIAL (PRIMARY) HYPERTENSION (3) Hypothyroidism Code(s): E03.9 - HYPOTHYROIDISM, UNSPECIFIED (4) Scoliosis Code(s): M41.9 - SCOLIOSIS, UNSPECIFIED Visit type - Emergency Visit Emergency Visit: Yes ED Registration Date: 05/14/17 Care time: The patient presented to the Emergency Department on the above date and was hospitalized for further evaluation of their emergent condition. - New Patient This patient is new to me today: Yes Date on this admission: 05/17/17 - Critical Care Critical Care patient: Yes Total Critical Care Time (in minutes): 40 Critical Care Statement: The care of this patient involved high complexity decision making to prevent further life threatening deterioration of the patient 's condition and/or to evaluate & treat vital organ system(s) failure or risk of failure.
--- NOTE | 2017-05-17 13:39 | PN ---
Progress Note, Physician History of Present Illness: POD 3 from spinal fusion surgery and L/S laminectomy. Pain control is improved. No longer feels nauseaous Eating well. +flatus. -BM - Current Medication List Current Medications: Active Medications Acetaminophen (Ofirmev Injection -) 1,000 mg IVPB Q6H PRN PRN Reason: BACK PAIN Last Admin: 05/17/17 02:06 Dose: 1,000 mg Amlodipine Besylate (Norvasc -) 5 mg PO HS [facility] Last Admin: 05/16/17 21:57 Dose: Not Given Chlorhexidine Gluconate (Hibiclens For Decolonization -) 1 applic TP HS [facility] Last Admin: 05/16/17 21:59 Dose: 1 applic Hydromorphone HCl (Dilaudid Speech And Language Specialist -) 6 mg MACHINE SETTER SHEET METAL MACHINE SETTER SHEET METAL [facility]INO PRN Reason: Protocol Stop: 05/21/17 21:06 Last Admin: 05/17/17 12:42 Dose: Not Given Lactated Ringer's (Lactated Ringers Solution) 1,000 ml in 1,000 mls @ 100 mls/ hr IV ASDIR [facility] Last Admin: 05/17/17 12:48 Dose: 100 mls/hr Levothyroxine Sodium (Synthroid -) 100 mcg PO DAILY@0700 [facility] Last Admin: 05/17/17 06:05 Dose: 100 mcg Mupirocin (Bactroban Ointment (For Decolonization) -) 1 applic NS BID [facility] Stop: 05/20/17 09:59 Last Admin: 05/17/17 10:16 Dose: 1 applic Ondansetron HCl (Zofran Injection) 4 mg IVPUSH Q6H PRN PRN Reason: NAUSEA AND/OR VOMITING Promethazine HCl (Phenergan Injection -) 12.5 mg IVPUSH Q6H PRN PRN Reason: NAUSEA-FOR RESCUE AFTER 15 MIN Senna (Senna -) 1 tab PO BID PRN PRN Reason: CONSTIPATION - Objective Vital Signs: Vital Signs Temperature 98.6 F 05/17/17 12:57 Pulse Rate 88 05/17/17 12:57 Respiratory Rate 20 05/17/17 12:57 Blood Pressure 119/52 05/17/17 12:57 O2 Sat by Pulse Oximetry (%) 97 05/17/17 09:00 Additional Findings/Remarks: GEN: AAOx3, NAD, Lying comfortably HEENT: PERRLA, EOMi CV: S1, S2, RRR LUNG: CTABL ABD: Soft, NT, ND MSK: No edema, no erythema NEURO: CN 2-12 intact Labs: CBC, BMP 05/17/17 05:57 05/17/17 05:57 Assessment/Plan 71yo F who is s/p spinal fusion surgery and L/S laminectomy. EBL 1600. # Neuro: POD 3 from spinal surgery -- Pain well controlled, continue PT, neuro checks -- Post-op fever, resolved. No pulmonary issues. Bharath monitor # CV: HTN -- On IVF 125cc/hr, with bolus PRN. -- Continue to hold antiHTN # Endo: Hypothyroidism -- Continue Levo # FEN/PPX -- IVF, advancing to sodium controlled diet -- SCDs, no GI ppx #Dispo -- Transfer to med/surg Clara Gabriel MD PGY1 ICU Resident
--- NOTE | 2017-05-17 14:20 | PN ---
Teaching Attending Note Name of Resident: Rosi Fuentes ATTENDING PHYSICIAN STATEMENT I saw and evaluated the patient. I reviewed the resident's note and discussed the case with the resident. I agree with the resident's findings and plan as documented. SUBJECTIVE: OBJECTIVE: Vital Signs Period Temp Pulse Resp BP Sys/Burgess Pulse Ox Last 24 Hr 98.0 F-100.8 F 75-88 15-22 73-119/48-75 97-97 Laboratory Results - last 24 hr 05/17/17 05/17/17 05:57 05:57 WBC 9.8 RBC 3.04 L Hgb 9.5 L D Hct 27.4 L MCV 89.9 MCH 31.2 MCHC 34.7 RDW 14.9 Plt Count 110 L MPV 9.4 Sodium 142 Potassium 3.9 Chloride 107 Carbon Dioxide 31 Anion Gap 4 L BUN 10 Creatinine 0.4 L Random Glucose 109 H Calcium 7.5 L Phosphorus 2.2 L Magnesium 1.8 Current Medications Generic Name Dose Route Start Last Admin Trade Name Freq PRN Reason Stop Dose Admin Acetaminophen 1,000 mg 05/17/17 02:00 05/17/17 02:06 Ofirmev Injection - IVPB 1,000 mg Q6H PRN Administration BACK PAIN Amlodipine Besylate 5 mg 05/15/17 22:00 05/16/17 21:57 Norvasc - PO Not Given HS VALENTINO Chlorhexidine Gluconate 1 applic 05/15/17 22:00 05/16/17 21:59 Hibiclens For Decolonization - TP 1 applic HS [facility] Administration Hydromorphone HCl 6 mg 05/15/17 12:59 05/17/17 12:42 Dilaudid Brim Pouncer Machine Operator - ONSITE HEALTH COACH 05/21/17 21:06 Not Given ONSITE HEALTH COACH VALENTINO Protocol Lactated Ringer's 1,000 ml in 1,000 mls @ 100 mls/hr 05/16/17 17:15 05/17/17 12:48 Lactated Ringers Solution IV 100 mls/hr ASDIR [facility]INO Administration Levothyroxine Sodium 100 mcg 05/15/17 07:00 05/17/17 06:05 Synthroid - PO 100 mcg DAILY@0700 [facility] Administration Mupirocin 1 applic 05/15/17 10:00 05/17/17 10:16 Bactroban Ointment (For Decolonization) - NS 05/20/17 09:59 1 applic BID VALENTINO Administration Ondansetron HCl 4 mg 05/14/17 21:36 Zofran Injection IVPUSH Q6H PRN NAUSEA AND/OR VOMITING Promethazine HCl 12.5 mg 05/14/17 21:04 Phenergan Injection - IVPUSH Q6H PRN NAUSEA-FOR RESCUE AFTER 15 MIN Senna 1 tab 05/17/17 11:46 Senna - PO BID PRN CONSTIPATION ASSESSMENT AND PLAN:
[2017-05-17] MEDS ORDERED: PROMETHAZINE HCL 25 MG/1 ML VIAL IVPB PRN (15:53)
[2017-05-17] MEDS ORDERED: ONDANSETRON 4 MG/2 ML VIAL IVPUSH PRN (15:53)
--- NOTE | 2017-05-17 18:00 | PN ---
Progress Note (short form) - Note Progress Note: POD #3 - s/p T4-pelvis fusion under general anesthesia with FAMILY SOCIOLOGIST for post-op pain management. VSS. Pt. doing well, resting comfortably in bed. No complaints. Good pain control. Will continue FAMILY SOCIOLOGIST at present settings. Continue current care.
[2017-05-17] MEDS ORDERED: MUPIROCIN 2% TOPICAL OINTMENT FOR DECOLONIZATION NS SCH (22:00)
[2017-05-17] MEDS ORDERED: amLODIPine BESYLATE 5 MG TABLET (FP) PO SCH (22:00)
[2017-05-17] MEDS ORDERED: CHLORHEXIDINE GLUCONATE 4% CLEANSER FOR DECOLONIZATION TP SCH (22:00)
[2017-05-18] MEDS: ACETAMINOPHEN 1000 MG/100 ML VIAL (NON FORMULARY) IVPB PRN (03:19)
[2017-05-18] MEDS: LEVOTHYROXINE NA 100 MCG TABLET (FP) PO SCH (06:07)
--- NOTE | 2017-05-18 07:51 | PN ---
<Rola Mathews - Last Filed: 05/18/17 17:44> Physical Exam: SUBJECTIVE: Patient seen and examined. No acute events overnight. Patient offers no new complaints. Says she still experiences back pain since surgery. She has been using OPERATIONAL REVIEW SERGEANT around the clock. She denies CP, SOB, nausea, vomiting, dizziness, fevers. OBJECTIVE: Vital Signs Period Temp Pulse Resp BP Sys/Burgess Pulse Ox Last 24 Hr 98.1 F-99.0 F 80-103 16-20 90-122/45-80 97-97 GENERAL: The patient is awake, alert, and fully oriented, in no acute distress. HEAD: Normal with no signs of trauma. EYES: PERRL, extraocular movements intact, sclera anicteric, conjunctiva clear. No ptosis. ENT: oropharynx clear without exudates, moist mucous membranes. NECK: supple. LUNGS: Breath sounds equal, clear to auscultation bilaterally, no wheezes, no crackles, no accessory muscle use. HEART: Regular rate and rhythm, S1, S2 without murmur, rub or gallop. ABDOMEN: Soft, nontender, nondistended, normoactive bowel sounds, no guarding, no rebound, no hepatosplenomegaly, no masses. EXTREMITIES: 2+ pulses, warm, well-perfused, no edema. 5/5 strength throughout b /l Back: Limited exam due to back pain. Unable to assess ROM. Dressing at surgical site. NEUROLOGICAL: Cranial nerves II through XII grossly intact. Sensation intact b/ l throughout. PSYCH: Normal mood, normal affect. Laboratory Results - last 24 hr 05/14/17 10:38 Blood Type O POSITIVE Antibody Screen Negative Crossmatch IS Only See Detail Active Medications Generic Name Dose Route Start Last Admin Trade Name Freq PRN Reason Stop Dose Admin Acetaminophen 1,000 mg 05/17/17 15:53 05/18/17 03:19 Ofirmev Injection - IVPB 1,000 mg Q6H PRN Administration BACK PAIN Amlodipine Besylate 5 mg 05/17/17 22:00 05/17/17 22:22 Norvasc - PO 5 mg HS [facility]INO Administration Hydromorphone HCl 6 mg 05/17/17 15:53 05/17/17 16:11 Dilaudid Automatic Vulcanizing Lead Operator - OPERATIONAL REVIEW SERGEANT 05/21/17 21:06 6 mg OPERATIONAL REVIEW SERGEANT VALENTINO Administration Protocol Lactated Ringer's 1,000 ml in 1,000 mls @ 100 mls/hr 05/17/17 15:53 05/17/17 22:09 Lactated Ringers Solution IV 100 mls/hr ASDIR [facility] Administration Levothyroxine Sodium 100 mcg 05/18/17 07:00 05/18/17 06:07 Synthroid - PO 100 mcg DAILY@0700 [facility] Administration Ondansetron HCl 4 mg 05/17/17 15:53 Zofran Injection IVPUSH Q6H PRN NAUSEA AND/OR VOMITING Senna 1 tab 05/17/17 15:53 Senna - PO Q12H PRN CONSTIPATION ASSESSMENT/PLAN: The pt is a 71 year old female with a PMH of HTN, hypothyroidism, spinal stenosis s/p L2-S1 laminectomies and posterior decompression and spinal fusion. #S/P Spinal Surgery -T4-Pelvis fusion post lumbar interbody fusion -post-op Day 4 -incentive spirometry -monitor drain output -pain control, cont. OPERATIONAL REVIEW SERGEANT pump -Physical therapy -FU am labs #Constipation -likely opiate induced -Senna -Dulcolax #Hypomagnesemia; repleted, will monitor #Hypophosphatemia; -repleted, will follow #HTN: -cont IV fluids, LR @ 100 -hold Amlodipine #Hypothyroidism: -continue home med Synthroid 100 mcg qd #HDL: -continue Lipitor 20 mg qd #DVT PPX; -mechanical prophylaxis only -SCDs #FEN: -LR @ 100ml/hour -Replete as needed -Sodium controlled diet Visit type - Emergency Visit Emergency Visit: Yes ED Registration Date: 05/14/17 Care time: The patient presented to the Emergency Department on the above date and was hospitalized for further evaluation of their emergent condition. - New Patient This patient is new to me today: Yes Date on this admission: 05/18/17 - Critical Care Critical Care patient: No <Lincoln Salazar - Last Filed: 05/18/17 18:32> Physical Exam: patient seen and examined with Dr. Mathews. Agree with above findings and plan of care with exceptions mentioned below. patient with fevers now. Blood/urine cultures, urinalysis and CXR. ID consult and monitor closely. Aggressive bowel regimen. Follow up with surgery to d/c dilaudid OPERATIONAL REVIEW SERGEANT. PT replete lytes prn. DVTPXx per surgery.
[2017-05-18 07:53] LABS: ANION GAP 6 (8-16); BLOOD UREA NITROGEN 7 mg/dL (7-18); CALCIUM 7.7 mg/dL (8.5-10.1); CHLORIDE 102 mmol/L (98-107); CO2 31 mmol/L (21-32); CREATININE 0.4 mg/dL (0.55-1.02); GLUCOSE,RANDOM 100 mg/dL (74-106); MAGNESIUM 1.7 mg/dL (1.8-2.4); PHOSPHOROUS 1.9 mg/dL (2.5-4.9); POTASSIUM 3.7 mmol/L (3.5-5.1); SODIUM 139 mmol/L (136-145)
[2017-05-18 08:00] LABS: HEMATOCRIT 31.2 % (32.4-45.2); HEMOGLOBIN 10.2 GM/dL (10.7-15.3); MCH 29.8 pg (25.7-33.7); MCHC 32.7 g/dl (32.0-36.0); MEAN PLT VOLUME 9.4 fl (7.5-11.1); PLATELET COUNT 142 K/MM3 (134-434); RBC 3.43 M/mm3 (3.60-5.2); RDW 14.7 % (11.6-15.6); WHITE BLOOD COUNT 10.1 K/mm3 (4.0-10.0)
[2017-05-18] MEDS: LACTATED RINGERS SOLUTION 1,000 ML/1,000 ML INFUS.BAG IV SCH ×2 (09:57→16:04)
[2017-05-18] MEDS: HYDROmorphone *PCA* 6MG/30ML DISP.SYRIN PCA SCH ×2 (10:59→15:05)
[2017-05-18] MEDS ORDERED: BISACODYL 5 MG TABLET.DR (FP) PO PRN (13:13)
[2017-05-18] MEDS ORDERED: MAGNESIUM SULF 50% (8.12 MEQ/2 ML-1 GM VIAL) IVPB ONE (14:19)
[2017-05-18] MEDS ORDERED: NAPH,MB-DB/K PH,MBDB POWDER PACKET PO ONE (14:45)
[2017-05-18] MEDS ORDERED: MAGNESIUM 1GM/D5W - 1 GM/100 ML IVPB IVPB ONE (14:45)
--- NOTE | 2017-05-18 15:18 | PN ---
Progress Note (short form) - Note Progress Note: Anesthesia/Pain Pt seen and examined S:Alert and awake uses TANGLED YARN WORKER O: Vital Signs Temperature 98.8 F 05/18/17 09:00 Pulse Rate 95 H 05/18/17 09:00 Respiratory Rate 20 05/18/17 09:00 Blood Pressure 112/67 05/18/17 09:00 O2 Sat by Pulse Oximetry (%) 96 05/18/17 09:00 CBC, BMP 05/18/17 06:00 05/18/17 06:00 A/P: Current Active Problems Hypertension (Acute) Hypothyroidism (Acute) S/P laminectomy (Acute) Scoliosis (Acute) Doing well post op Continue TANGLED YARN WORKER Juan Ramon Lopez MD
[2017-05-18] MEDS ORDERED: ACETAMINOPHEN 325 MG TABLET (FP) PO PRN (17:55)
[2017-05-18] MEDS: SENNOSIDES 8.6MG TABLET (FP) PO PRN (18:09)
--- NOTE | 2017-05-18 18:12 | PN ---
Progress Note (short form) - Note Progress Note: 71F s/p L2-S1 laminectomies & posterior decompression, Beard-Macias Osteotomies T10/T11, L1/2, L2/3, L3/4, L4/5, T6-S1 PISF POD #4. Pain well controlled. No acute events overnight. Pt. denies overnight history of chest pain, shortness of breath, nausea, vomiting, chills, & sweats. (+) Voiding; (+) Flatus; (-) Stool. Pt. dizzy x 2 w/attempted ambulation. All labs and vitals reviewed. PE: AAO x 3, NAD. Back: Dressing w/(+) serosanguinous drainage. Drain intact & in place. NV assessment: at baseline. 71F s/p L2-S1 laminectomies & posterior decompression, Beard-Macias Osteotomies T10/T11, L1/2, L2/3, L3/4, L4/5, T6-S1 PISF POD #4. -Pain control. -Mechanical DVT PPx. only: GEETHA's, SCD's. -Incentive spirometry. -PT/OT/Rehab, OOB. -WBAT B/L UE & LE. -Soft, diabetic diet as tolerated. -Bowel regimen. -Care per ICU, medical hospitalist & cardiology teams. -Will follow. Lauri Connors MD (Orthopaedic Surgery).
[2017-05-19 05:18] LABS: URINE APPEARANCE CLEAR; URINE BILIRUBIN NEGATIVE (NEGATIVE); URINE BLOOD NEGATIVE (NEGATIVE); URINE COLOR LTYELLOW; URINE GLUCOSE (UA) NEGATIVE (NEGATIVE); URINE KETONE NEGATIVE (NEGATIVE); URINE LEUK ESTERASE NEGATIVE (NEGATIVE); URINE NITRITE NEGATIVE (NEGATIVE); URINE PROTEIN NEGATIVE (NEGATIVE); URINE UROBILINOGEN NEGATIVE mg/dL (0.2-1.0)
[2017-05-19] MEDS: HYDROmorphone *PCA* 6MG/30ML DISP.SYRIN PCA SCH (05:54)
[2017-05-19] MEDS: LEVOTHYROXINE NA 100 MCG TABLET (FP) PO SCH (06:04)
[2017-05-19 08:34] LABS: BASO % 0.7 % (0-2.0); HEMATOCRIT 28.2 % (32.4-45.2); HEMOGLOBIN 9.4 GM/dL (10.7-15.3); LYMPH % 12.1 % (8-40); MCH 30.2 pg (25.7-33.7); MCHC 33.3 g/dl (32.0-36.0); MEAN CELL VOLUME 90.6 fl (80-96); MEAN PLT VOLUME 8.2 fl (7.5-11.1); MONO % 10.1 % (3.8-10.2); NEUT % 76.1 % (42.8-82.8); PLATELET COUNT 179 K/MM3 (134-434); RBC 3.11 M/mm3 (3.60-5.2); RDW 14.3 % (11.6-15.6)
[2017-05-19 09:31] LABS: ANION GAP 7 (8-16); BLOOD UREA NITROGEN 6 mg/dL (7-18); CALCIUM 7.9 mg/dL (8.5-10.1); CHLORIDE 97 mmol/L (98-107); CO2 34 mmol/L (21-32); CREATININE 0.3 mg/dL (0.55-1.02); GLUCOSE,RANDOM 93 mg/dL (74-106); POTASSIUM 3.5 mmol/L (3.5-5.1); SODIUM 138 mmol/L (136-145)
[2017-05-19] MEDS: ACETAMINOPHEN 1000 MG/100 ML VIAL (NON FORMULARY) IVPB PRN (10:24)
--- NOTE | 2017-05-19 10:42 | PN ---
Progress Note (short form) - Note Progress Note: 71F s/p L2-S1 laminectomies & posterior decompression, Beard-Macias Osteotomies T10/T11, L1/2, L2/3, L3/4, L4/5, T6-S1 PISF POD #5. Pain well controlled. No acute events overnight. Pt. denies overnight history of chest pain, shortness of breath, nausea, vomiting, chills, & sweats. (+) Voiding; (+) Flatus; (-) Stool. All labs and vitals reviewed. PE: AAO x 3, NAD. Back: Dressing w/(+) serosanguinous drainage. Drain removed and dressing changed. Wound C/D/I. B/L LE NV assessment: at baseline. 71F s/p L2-S1 laminectomies & posterior decompression, Beard-Macias Osteotomies T10/T11, L1/2, L2/3, L3/4, L4/5, T6-S1 PISF POD #5. -Pain control. -Mechanical DVT PPx. only: GEETHA's, SCD's. -Incentive spirometry. -PT/OT/Rehab, OOB. -WBAT B/L UE & LE. -Soft, diabetic diet as tolerated. -Bowel regimen. -Care per medical hospitalist team. -Discharge planning. -Will follow. Xiang Connors MD (Orthopaedic Surgery).
--- NOTE | 2017-05-19 11:46 | PN ---
Progress Note (short form) - Note Progress Note: ID Consult dictated POD # 5 L2S1 laminectomy, posterior decompression Post op fever Await c/s Observe off antibiotics OOB Incentive spirometry
[2017-05-19] MEDS: LACTATED RINGERS SOLUTION 1,000 ML/1,000 ML INFUS.BAG IV SCH ×3 (12:09→22:04)
--- NOTE | 2017-05-19 13:02 | PN ---
Teaching Attending Note Name of Resident: Lincoln Salazar ATTENDING PHYSICIAN STATEMENT Time of evaluation: 8:05 AM I saw and evaluated the patient. I reviewed the resident's note and discussed the case with the resident. I agree with the resident's findings and plan as documented. SUBJECTIVE: patient seen and examined, been on bed jc for long, reporting back pain from the same and uncomfortable. No other complaints. OBJECTIVE: Vital Signs Period Temp Pulse Resp BP Sys/Burgess Pulse Ox Last 24 Hr 98.2 F-101.2 F 82-103 20-20 125-152/67-84 90-94 Intake & Output 05/16/17 05/17/17 05/18/17 05/19/17 23:59 23:59 23:59 23:59 Intake Total 4550 2620 1600 1050 Output Total 1935 1655 2110 1400 Balance 2615 965 510 -350 Weight 174 lb 12.8 oz 198 lb 2 oz 194 lb 8 oz General: lying in bed, uncomfortable, upset but in no acute distress Back: wound dressing clear with no blood or discharge Abdomen: soft, NT, ND, positive bowel sounds extremities: no edema Chest: no rales or wheezing Home Medication List Medication Instructions Recorded Confirmed Type Amlodipine Besylate 5 mg PO HS 05/03/17 05/14/17 History Atorvastatin Ca [Lipitor] 20 mg PO HS 05/03/17 05/14/17 History Calcium Carbonate [Calcium] 1,200 mg PO DAILY 05/03/17 05/14/17 History Cholecalciferol (Vitamin D3) 50,000 unit PO WEEKLY 05/03/17 05/14/17 History [Vitamin D3] Levothyroxine [Synthroid -] 100 mcg PO DAILY 05/03/17 05/14/17 History Active Medications Generic Name Dose Route Start Last Admin Trade Name Freq PRN Reason Stop Dose Admin Acetaminophen 1,000 mg 05/17/17 15:53 05/19/17 10:24 Ofirmev Injection - IVPB 1,000 mg Q6H PRN Administration BACK PAIN Acetaminophen 650 mg 05/18/17 17:55 05/18/17 18:09 Tylenol - PO 650 mg Q6H PRN Administration FEVER Bisacodyl 5 mg 05/18/17 13:13 Dulcolax - PO DAILY PRN CONSTIPATION Hydromorphone HCl 6 mg 05/17/17 15:53 05/19/17 05:54 Dilaudid Hospital Personnel Director - ASSISTANT GOLF COURSE SUPERINTENDENT 05/21/17 21:06 6 mg ASSISTANT GOLF COURSE SUPERINTENDENT VALENTINO Administration Protocol Lactated Ringer's 1,000 ml in 1,000 mls @ 100 mls/hr 05/17/17 15:53 05/19/17 12:09 Lactated Ringers Solution IV 100 mls/hr ASDIR [facility] Administration Levothyroxine Sodium 100 mcg 05/18/17 07:00 05/19/17 06:04 Synthroid - PO 100 mcg DAILY@0700 [facility] Administration Ondansetron HCl 4 mg 05/17/17 15:53 Zofran Injection IVPUSH Q6H PRN NAUSEA AND/OR VOMITING Senna 1 tab 05/17/17 15:53 05/18/17 18:09 Senna - PO 1 tab Q12H PRN Administration CONSTIPATION Laboratory Results - last 24 hr 05/19/17 05/19/17 05/19/17 04:33 07:00 07:00 WBC 8.0 RBC 3.11 L Hgb 9.4 L Hct 28.2 L MCV 90.6 MCH 30.2 MCHC 33.3 RDW 14.3 Plt Count 179 D MPV 8.2 D Neutrophils % 76.1 Lymphocytes % 12.1 Monocytes % 10.1 Eosinophils % 1.0 Basophils % 0.7 Sodium 138 Potassium 3.5 Chloride 97 L Carbon Dioxide 34 H Anion Gap 7 L BUN 6 L Creatinine 0.3 L Random Glucose 93 Calcium 7.9 L Urine Color Ltyellow Urine Appearance Clear Urine pH 8.0 Ur Specific [place] 1.008 Urine Protein Negative Urine Glucose (UA) Negative Urine Ketones Negative Urine Blood Negative Urine Nitrite Negative Urine Bilirubin Negative Urine Urobilinogen Negative Ur Leukocyte Esterase Negative ASSESSMENT AND PLAN: 71 yof with HTN, hypothyroidism, s/p elective lumbosacral laminectomies/ Decompression with spinal instrumentation 05/14 -Lumbar stenosis s/p lumbosacral laminectomies/decompression with spinral instrumentation 05/14/2017 -POst operative fever -Acute blood loss anemia from surgery, s/p 2 units PRBC 05/14 -HTN -Hypothyroidism -Constipation Plan: Spine input noted, PT/back brace and activity per them. Dilaudid ASSISTANT GOLF COURSE SUPERINTENDENT per anesthesia, taper as tolerated. No further fevers, ID input appreciated. CXR, u/a neg for concerns, follow up blood cultures. Aggressive bowel regimen, add dulcolax supp x 1 and miralax standing, encourage OOB Hold amlodipine, BP rising, resume in 24 hours hypertensives. Continue levothyroxine DVTPPX per surgery. PT eval and dispo planning. Anticipate in 2-3 days if no further fevers, and continues to improve.
--- NOTE | 2017-05-19 13:04 | PN ---
Progress Note (short form) - Note Progress Note: Patient stable and c/o pain score of 4-5/10 on Dilaudid CREW CALLER.Will continue CREW CALLER today and may add some other pain medication.Will f/u tomorrow.
[2017-05-19] MEDS ORDERED: BISACODYL 10 MG SUPP.RECT RC ONE (13:07)
[2017-05-19] MEDS: GABAPENTIN 300 MG CAPSULE (FP) PO SCH (22:01)
[2017-05-19] MEDS: DOCUSATE SODIUM 100 MG CAPSULE (FP) PO SCH (22:01)
[2017-05-20] MEDS: LEVOTHYROXINE NA 100 MCG TABLET (FP) PO SCH (06:55)
[2017-05-20 08:11] LABS: ALBUMIN 1.6 g/dl (3.4-5.0); ANION GAP 7 (8-16); BASO % 0.6 % (0-2.0); BLOOD UREA NITROGEN 12 mg/dL (7-18); CALCIUM 7.8 mg/dL (8.5-10.1); CHLORIDE 100 mmol/L (98-107); CO2 32 mmol/L (21-32); GLUCOSE,RANDOM 131 mg/dL (74-106); HEMATOCRIT 26.1 % (32.4-45.2); HEMOGLOBIN 8.7 GM/dL (10.7-15.3); LYMPH % 13.4 % (8-40); MCH 30.3 pg (25.7-33.7); MCHC 33.4 g/dl (32.0-36.0); MEAN CELL VOLUME 90.7 fl (80-96); MEAN PLT VOLUME 7.8 fl (7.5-11.1); MONO % 9.9 % (3.8-10.2); NEUT % 75.1 % (42.8-82.8); PLATELET COUNT 226 K/MM3 (134-434); POTASSIUM 3.6 mmol/L (3.5-5.1); RBC 2.88 M/mm3 (3.60-5.2); RDW 14.4 % (11.6-15.6); SODIUM 139 mmol/L (136-145); WHITE BLOOD COUNT 8.4 K/mm3 (4.0-10.0)
[2017-05-20 08:15] LABS: ALK PHOS 150 U/L (45-117); BILIRUBIN,TOTAL 0.8 mg/dL (0.2-1.0); CREATININE 0.5 mg/dL (0.55-1.02); SGOT/AST 94 U/L (15-37); SGPT/ALT 114 U/L (12-78); TOT PROT 4.7 g/dl (6.4-8.2)
[2017-05-20] MEDS: LACTATED RINGERS SOLUTION 1,000 ML/1,000 ML INFUS.BAG IV SCH ×2 (08:23→19:42)
[2017-05-20] MEDS ORDERED: PT OWN MED DRAWER 7, Y5N ONE (09:49)
[2017-05-20] MEDS: GABAPENTIN 300 MG CAPSULE (FP) PO SCH ×2 (09:51→22:15)
[2017-05-20] MEDS: DOCUSATE SODIUM 100 MG CAPSULE (FP) PO SCH ×2 (09:51→22:15)
[2017-05-20] MEDS: POLYETHYLENE GLYCOL 3350 119 GM BTL PO SCH (09:51)
--- NOTE | 2017-05-20 13:07 | PN ---
Progress Note, Physician History of Present Illness: OOB in chair Ambulated Low grade temp Denies urinary tract symptoms WBC WNL BC (-) Urine c/s 20-30K LF - Current Medication List Current Medications: Active Medications Acetaminophen (Ofirmev Injection -) 1,000 mg IVPB Q6H PRN PRN Reason: BACK PAIN Last Admin: 05/19/17 10:24 Dose: 1,000 mg Acetaminophen (Tylenol -) 650 mg PO Q6H PRN PRN Reason: FEVER Last Admin: 05/18/17 18:09 Dose: 650 mg Docusate Sodium (Colace -) 100 mg PO BID [facility] Last Admin: 05/20/17 09:51 Dose: 100 mg Gabapentin (Neurontin -) 300 mg PO BID [facility] Last Admin: 05/20/17 09:51 Dose: 300 mg Hydromorphone HCl (Dilaudid Marketing Development Specialist -) 6 mg SAND AND GRAVEL PLANT OPERATOR SAND AND GRAVEL PLANT OPERATOR [facility]INO PRN Reason: Protocol Stop: 05/21/17 21:06 Last Admin: 05/19/17 05:54 Dose: 6 mg Lactated Ringer's (Lactated Ringers Solution) 1,000 ml in 1,000 mls @ 100 mls/ hr IV ASDIR [facility] Last Admin: 05/20/17 08:23 Dose: 100 mls/hr Levothyroxine Sodium (Synthroid -) 100 mcg PO DAILY@0700 [facility] Last Admin: 05/20/17 06:55 Dose: 100 mcg Ondansetron HCl (Zofran Injection) 4 mg IVPUSH Q6H PRN PRN Reason: NAUSEA AND/OR VOMITING Polyethylene Glycol (Miralax (For Daily Use) -) 17 gm PO DAILY [facility] Last Admin: 05/20/17 09:51 Dose: 17 gm Senna (Senna -) 1 tab PO Q12H PRN PRN Reason: CONSTIPATION Last Admin: 05/18/17 18:09 Dose: 1 tab - Objective Vital Signs: Vital Signs Temperature 98.2 F 05/20/17 07:45 Pulse Rate 86 05/20/17 07:45 Respiratory Rate 18 05/20/17 07:45 Blood Pressure 150/60 05/20/17 07:45 O2 Sat by Pulse Oximetry (%) 90 L 05/19/17 21:00 Constitutional: Yes: No Distress Eyes: Yes: Conjunctiva Clear Cardiovascular: Yes: Regular Rate and Rhythm, S1, S2 Respiratory: Yes: CTA Bilaterally Gastrointestinal: Yes: Normal Bowel Sounds, Soft. No: Tenderness Extremities: No: Calf Tenderness Labs: CBC, BMP 05/20/17 06:45 05/20/17 06:45 Assessment/Plan POD #6 L2S1 laminectomy Low grade temp + Urine c/s likely contaminant Observe off antibiotics OOB Incentive spirometry
--- NOTE | 2017-05-20 13:38 | PN ---
Progress Note, Physician Chief Complaint: Pt. pain is being controlled well with ORACLE SCM CONSULTANT currently. No complications or complaints. - Current Medication List Current Medications: Active Medications Acetaminophen (Ofirmev Injection -) 1,000 mg IVPB Q6H PRN PRN Reason: BACK PAIN Last Admin: 05/19/17 10:24 Dose: 1,000 mg Acetaminophen (Tylenol -) 650 mg PO Q6H PRN PRN Reason: FEVER Last Admin: 05/18/17 18:09 Dose: 650 mg Docusate Sodium (Colace -) 100 mg PO BID [facility] Last Admin: 05/20/17 09:51 Dose: 100 mg Gabapentin (Neurontin -) 300 mg PO BID [facility] Last Admin: 05/20/17 09:51 Dose: 300 mg Hydromorphone HCl (Dilaudid Preparation Plant Supervisor -) 6 mg ORACLE SCM CONSULTANT ORACLE SCM CONSULTANT [facility] PRN Reason: Protocol Stop: 05/21/17 21:06 Last Admin: 05/19/17 05:54 Dose: 6 mg Lactated Ringer's (Lactated Ringers Solution) 1,000 ml in 1,000 mls @ 100 mls/ hr IV ASDIR [facility] Last Admin: 05/20/17 08:23 Dose: 100 mls/hr Levothyroxine Sodium (Synthroid -) 100 mcg PO DAILY@0700 [facility] Last Admin: 05/20/17 06:55 Dose: 100 mcg Ondansetron HCl (Zofran Injection) 4 mg IVPUSH Q6H PRN PRN Reason: NAUSEA AND/OR VOMITING Polyethylene Glycol (Miralax (For Daily Use) -) 17 gm PO DAILY [facility] Last Admin: 05/20/17 09:51 Dose: 17 gm Senna (Senna -) 1 tab PO Q12H PRN PRN Reason: CONSTIPATION Last Admin: 05/18/17 18:09 Dose: 1 tab - Objective Vital Signs: Vital Signs Temperature 98.2 F 05/20/17 07:45 Pulse Rate 86 05/20/17 07:45 Respiratory Rate 18 05/20/17 07:45 Blood Pressure 150/60 05/20/17 07:45 O2 Sat by Pulse Oximetry (%) 90 L 05/19/17 21:00 Constitutional: Yes: Well Nourished, No Distress, Calm Neurological: Yes: WNL, Alert, Oriented Labs: CBC, BMP 05/20/17 06:45 05/20/17 06:45 Assessment/Plan POD#5 s/p T4-pelvis fusion under GA with Dilaudid ORACLE SCM CONSULTANT. Doing well. Continue ORACLE SCM CONSULTANT while awaiting discharge planning.
[2017-05-20] MEDS ORDERED: BISACODYL 10 MG SUPP.RECT RC PRN (13:49)
[2017-05-20] MEDS ORDERED: oxyCODONE HCL 5 MG TABLET PO PRN (13:54)
[2017-05-20] MEDS ORDERED: HYDROmorphone HCL CARPU-JECT 4 MG/1 ML DISP.SYRIN IVPUSH PRN (13:57)
--- NOTE | 2017-05-20 14:02 | PN ---
Teaching Attending Note Name of Resident: Lincoln Salazar SUBJECTIVE: patient seen and examined. Improved, pain, wearing brace and eating lunch. No nausea, vomiting, abdominal pain or new concerns. Agreable to getting of CRIB CLERK. OBJECTIVE: Vital Signs Period Temp Pulse Resp BP Sys/Burgess Pulse Ox Last 24 Hr 98.2 F-100.8 F 86-98 18-20 106-150/47-79 90 Intake & Output 05/17/17 05/18/17 05/19/17 05/20/17 23:59 23:59 23:59 23:59 Intake Total 2620 1600 2521 Output Total 1655 2110 2200 800 Balance 965 -510 321 -800 Weight 198 lb 2 oz 194 lb 8 oz general: sitting in chair in brace, no acute distress Abdomen: soft, NT, ND, positive bowel sound extremites: no edema CVS:S1S2 regular Chest: CTAB, no rales or wheezing Home Medication List Medication Instructions Recorded Confirmed Type Amlodipine Besylate 5 mg PO HS 05/03/17 05/14/17 History Atorvastatin Ca [Lipitor] 20 mg PO HS 05/03/17 05/14/17 History Calcium Carbonate [Calcium] 1,200 mg PO DAILY 05/03/17 05/14/17 History Cholecalciferol (Vitamin D3) 50,000 unit PO WEEKLY 05/03/17 05/14/17 History [Vitamin D3] Levothyroxine [Synthroid -] 100 mcg PO DAILY 05/03/17 05/14/17 History Active Medications Generic Name Dose Route Start Last Admin Trade Name Freq PRN Reason Stop Dose Admin Acetaminophen 1,000 mg 05/17/17 15:53 05/19/17 10:24 Ofirmev Injection - IVPB 1,000 mg Q6H PRN Administration BACK PAIN Acetaminophen 650 mg 05/18/17 17:55 05/18/17 18:09 Tylenol - PO 650 mg Q6H PRN Administration FEVER Bisacodyl 10 mg 05/20/17 13:49 Dulcolax Suppository - AR DAILY PRN CONSTIPATION Docusate Sodium 100 mg 05/19/17 22:00 05/20/17 09:51 Colace - PO 100 mg BID VALENTINO Administration Gabapentin 300 mg 05/19/17 22:00 05/20/17 09:51 Neurontin - PO 300 mg BID AVLENTINO Administration Hydromorphone HCl 0.5 mg 05/20/17 13:57 Dilaudid Injection - IVPUSH Q4H PRN PAIN Lactated Ringer's 1,000 ml in 1,000 mls @ 100 mls/hr 05/17/17 15:53 05/20/17 08:23 Lactated Ringers Solution IV 100 mls/hr ASDIR VALENTINO Administration Levothyroxine Sodium 100 mcg 05/18/17 07:00 05/20/17 06:55 Synthroid - PO 100 mcg DAILY@0700 VALENTINO Administration Ondansetron HCl 4 mg 05/17/17 15:53 Zofran Injection IVPUSH Q6H PRN NAUSEA AND/OR VOMITING Oxycodone HCl 5 mg 05/20/17 13:54 Roxicodone - PO Q4H PRN PAIN LEVEL 1-5 Oxycodone HCl 10 mg 05/20/17 13:56 Roxicodone - PO Q4H PRN PAIN LEVEL 4 - 6 Polyethylene Glycol 17 gm 05/20/17 10:00 05/20/17 09:51 Miralax (For Daily Use) - PO 17 gm DAILY VALENTINO Administration Senna 1 tab 05/17/17 15:53 05/18/17 18:09 Senna - PO 1 tab Q12H PRN Administration CONSTIPATION Laboratory Results - last 24 hr 05/20/17 05/20/17 06:45 06:45 WBC 8.4 RBC 2.88 L Hgb 8.7 L Hct 26.1 L MCV 90.7 MCH 30.3 MCHC 33.4 RDW 14.4 Plt Count 226 D MPV 7.8 Neutrophils % 75.1 Lymphocytes % 13.4 Monocytes % 9.9 Eosinophils % 1.0 Basophils % 0.6 Sodium 139 Potassium 3.6 Chloride 100 Carbon Dioxide 32 Anion Gap 7 L BUN 12 Creatinine 0.5 L Creat Clearance w eGFR > 60 Random Glucose 131 H Calcium 7.8 L Total Bilirubin 0.8 AST 94 H ALT 114 H Alkaline Phosphatase 150 H Total Protein 4.7 L Albumin 1.6 L Microbiology 05/19/17 04:33 Urine - Urine Clean Catch Urine Culture - Preliminary Lactose Fermenting Neg Bacilli 05/18/17 20:00 Blood - Peripheral Venous Blood Culture - Preliminary NO GROWTH OBTAINED AFTER 24 HOURS, INCUBATION TO CONTINUE FOR 4 DAYS. 02/16/18 19:30 Blood - Peripheral Venous Blood Culture - Preliminary NO GROWTH OBTAINED AFTER 24 HOURS, INCUBATION TO CONTINUE FOR 4 DAYS. ASSESSMENT AND PLAN: 71 yof with HTN, hypothyroidism, s/p elective lumbosacral laminectomies/ Decompression with spinal instrumentation 05/14 -Lumbar stenosis s/p lumbosacral laminectomies/decompression with spinral instrumentation 05/14/2017 -POst operative fever -Acute blood loss anemia from surgery, s/p 2 units PRBC 05/14 -Abnormal LFTS -HTN -Hypothyroidism -Constipation Plan: Spine input noted, PT/back brace and activity per them. Discussed with Dr. Argueta, d/c CRIB CLERK, transition to oxycodone/diluadid prn. Low grade fevers. ID input noted. Abnormal LFTs, check Abdominal Ultrasound, trend for now. No abdominal symptoms. blood cultures neg so far. CXR, u/a neg. Monitor clinically. Incentive spirometry. H/h trending down, no gross evidence of bleed. FOBT, follow up with spina.; Trend CBC for now. Iron panel. Resume home amlodipine. Hold lipitor for now. Continue levothyroxine DVTPPX per surgery. PT eval and dispo planning. Anticipate in 2-3 days if no further fevers, and continues to improve and no hepatic concerns. PLan discussed with patient in detail, all questions answered.
--- NOTE | 2017-05-20 15:27 | CONS ---
DATE OF CONSULTATION: DATE OF DICTATION: 05/19/2017 The patient is a 71-year-old female who is evaluated for postoperative fever. The patient underwent an L2 S1 laminectomy with posterior decompression on May 14, 2017. She is presently postoperative day number 5. Her postoperative course has been complicated by temperature elevation to 101.2. Patient complained of some back pain earlier today. She denies any shaking chills. No complaints of chest pain, shortness of breath, cough, or sputum production. No dysuria or hematuria. No complaints of calf pain or catheter-related phlebitis. Her surgical wound was evaluated earlier today and was noted to have serosanguineous drainage. PAST MEDICAL HISTORY: Positive for lumbar stenosis, hypertension, hypothyroidism. No known allergies. Medications at the present time include Zofran, Tylenol, senna, Dilaudid, Synthroid. PAST SURGICAL HISTORY: Status post bilateral total knee replacements. SOCIAL HISTORY: Resides at home. She is a nonsmoker, nondrinker. SYSTEMS REVIEW: Neurologic: No loss of consciousness, seizure activity, or focal weakness. Cardiac: Negative chest pain or palpitations. Respiratory: Negative cough or sputum production. Gastrointestinal: Positive for constipation. No vomiting or diarrhea. Genitourinary: Negative for urinary tract infection. LABORATORY DATA: White count 8.0, hematocrit 28.2, platelet count 179. BUN 6, creatinine 0.3. Urine leukocyte esterase negative. Chest x-ray negative for acute infiltrate. Blood and urine cultures preliminarily negative. PHYSICAL EXAMINATION: General: The patient is awake and alert. She is supine in bed in no acute distress. Vital Signs: Temperature 98.2, T-max 101.2. Blood pressure 152/84. Pulse 90, regular. Respiration 20 per minute. Eyes: Sclerae anicteric. Neck: Supple. Heart Sounds: S1, S2. No murmur. Lungs: Clear. Diminished breath sounds at the bases. Abdomen: Slightly distended, soft. No tenderness elicited. No mass, rebound or rigidity. Extremities: Negative for edema. Negative Homans sign. No catheter-related phlebitis noted. IMPRESSION: 1. Postoperative day number five L2 S1 laminectomy posterior decompression. 2. Postoperative fever. Source of temperature elevation not clear. Patient not acutely toxic appearing, normal white blood cell count. No localizing signs or symptoms of infection. Will await cultures, observe off antibiotic therapy, out of bed to chair, incentive spirometry. Thank you for the kind referral. GISELE GRIDER M.D. [id number]
[2017-05-20] MEDS: oxyCODONE HCL 5 MG TABLET PO PRN ×2 (15:57→21:00)
--- NOTE | 2017-05-20 17:44 | PN ---
Progress Note (short form) - Note Progress Note: 71F doing well s/p L2-S1 laminectomies & posterior decompression, Beard- Macias Osteotomies T10/T11, L1/2, L2/3, L3/4, L4/5, T6-S1 PISF POD #6. Pain well controlled. No acute events overnight. Pt. denies overnight history of chest pain, shortness of breath, nausea, vomiting, chills, & sweats. (+) Voiding; (+) Flatus; (+) Stool. All labs and vitals reviewed. PE: AAO x 3, NAD. Back: Dressing C/D/I. B/L LE NV assessment: at baseline. 71F s/p L2-S1 laminectomies & posterior decompression, Beard-Macias Osteotomies T10/T11, L1/2, L2/3, L3/4, L4/5, T6-S1 PISF POD #6. -Pain control. -Mechanical DVT PPx. only: GEETHA's, SCD's. -Incentive spirometry. -PT/OT/Rehab, OOB. -WBAT B/L UE & LE. -Soft, diabetic diet as tolerated. -Care per medical hospitalist team. -Discharge planning. -Will follow. Xiang Connors MD (Orthopaedic Surgery).
[2017-05-20] MEDS: amLODIPine BESYLATE 5 MG TABLET (FP) PO SCH (22:15)
[2017-05-20] MEDS: SENNOSIDES 8.6MG TABLET (FP) PO PRN (22:16)
[2017-05-21] MEDS: oxyCODONE HCL 5 MG TABLET PO PRN ×4 (00:51→19:02)
[2017-05-21] MEDS: LEVOTHYROXINE NA 100 MCG TABLET (FP) PO SCH (06:17)
[2017-05-21 07:28] LABS: HEMATOCRIT 28.5 % (32.4-45.2); HEMOGLOBIN 9.4 GM/dL (10.7-15.3); MCH 30.3 pg (25.7-33.7); MCHC 33.1 g/dl (32.0-36.0); MEAN CELL VOLUME 91.8 fl (80-96); MEAN PLT VOLUME 7.5 fl (7.5-11.1); PLATELET COUNT 280 K/MM3 (134-434); RDW 14.6 % (11.6-15.6); WHITE BLOOD COUNT 7.6 K/mm3 (4.0-10.0)
[2017-05-21 07:48] LABS: ALBUMIN 1.8 g/dl (3.4-5.0); ANION GAP 5 (8-16); BLOOD UREA NITROGEN 12 mg/dL (7-18); CHLORIDE 100 mmol/L (98-107); CO2 35 mmol/L (21-32); GLUCOSE,RANDOM 101 mg/dL (74-106); POTASSIUM 4.1 mmol/L (3.5-5.1); SODIUM 140 mmol/L (136-145)
[2017-05-21 07:53] LABS: ALK PHOS 172 U/L (45-117); BILIRUBIN,TOTAL 0.8 mg/dL (0.2-1.0); CREATININE 0.6 mg/dL (0.55-1.02); SGOT/AST 110 U/L (15-37); SGPT/ALT 159 U/L (12-78); TOT PROT 5.3 g/dl (6.4-8.2)
[2017-05-21 10:19] LABS: PLATELET ESTIMATE NORMAL
[2017-05-21] MEDS ORDERED: PT OWN MED DRAWER 7, Y5N ONE (11:09)
[2017-05-21] MEDS: POLYETHYLENE GLYCOL 3350 119 GM BTL PO SCH (11:13)
[2017-05-21] MEDS: DOCUSATE SODIUM 100 MG CAPSULE (FP) PO SCH ×2 (11:13→23:05)
[2017-05-21] MEDS: GABAPENTIN 300 MG CAPSULE (FP) PO SCH ×2 (11:14→23:05)
--- NOTE | 2017-05-21 14:13 | PN ---
Teaching Attending Note Name of Resident: Rola Mathews ATTENDING PHYSICIAN STATEMENT Time of evaluation: 8:50 AM I saw and evaluated the patient. I reviewed the resident's note and discussed the case with the resident. I agree with the resident's findings and plan as documented. SUBJECTIVE: Patient seen and examined, pleasant in bed, pain well controlled, no complaints , no BM yet but waiting to work with PT before taking suppository. NO nausea, vomiting, abdominal pain or diarrhea, tolerating diet well. OBJECTIVE: Home Medication List Medication Instructions Recorded Confirmed Type Amlodipine Besylate 5 mg PO HS 05/03/17 05/14/17 History Atorvastatin Ca [Lipitor] 20 mg PO HS 05/03/17 05/14/17 History Calcium Carbonate [Calcium] 1,200 mg PO DAILY 05/03/17 05/14/17 History Cholecalciferol (Vitamin D3) 50,000 unit PO WEEKLY 05/03/17 05/14/17 History [Vitamin D3] Levothyroxine [Synthroid -] 100 mcg PO DAILY 05/03/17 05/14/17 History Active Medications Generic Name Dose Route Start Last Admin Trade Name Freq PRN Reason Stop Dose Admin Acetaminophen 650 mg 05/18/17 17:55 05/18/17 18:09 Tylenol - PO 650 mg Q6H PRN Administration FEVER Amlodipine Besylate 5 mg 05/20/17 22:00 05/20/17 22:15 Norvasc - PO 5 mg HS VALENTINO Administration Bisacodyl 10 mg 05/20/17 13:49 Dulcolax Suppository - RC DAILY PRN CONSTIPATION Docusate Sodium 100 mg 05/19/17 22:00 05/21/17 11:13 Colace - PO 100 mg BID VALENTINO Administration Gabapentin 300 mg 05/19/17 22:00 05/21/17 11:14 Neurontin - PO 300 mg BID VALENTINO Administration Levothyroxine Sodium 100 mcg 05/18/17 07:00 05/21/17 06:17 Synthroid - PO 100 mcg DAILY@0700 VALENTINO Administration Ondansetron HCl 4 mg 05/17/17 15:53 Zofran Injection IVPUSH Q6H PRN NAUSEA AND/OR VOMITING Oxycodone HCl 5 mg 05/20/17 13:54 Roxicodone - PO Q4H PRN PAIN LEVEL 1-5 Oxycodone HCl 10 mg 05/20/17 13:56 05/21/17 11:25 Roxicodone - PO 10 mg Q4H PRN Administration PAIN LEVEL 4 - 6 Polyethylene Glycol 17 gm 05/20/17 10:00 05/21/17 11:13 Miralax (For Daily Use) - PO 17 gm DAILY VALENTINO Administration Senna 1 tab 05/17/17 15:53 05/20/17 22:16 Senna - PO 1 tab Q12H PRN Administration CONSTIPATION Laboratory Results - last 24 hr 05/21/17 05/21/17 05/21/17 06:30 06:30 06:30 WBC 7.6 RBC 3.10 L Hgb 9.4 L Hct 28.5 L MCV 91.8 MCH 30.3 MCHC 33.1 RDW 14.6 Plt Count 280 D MPV 7.5 Neutrophils % No Result Required. Neutrophils % (Manual) 61.6 Band Neutrophils % 0.0 Lymphocytes % No Result Required. Lymphocytes % (Manual) 25.3 Monocytes % (Manual) 7 Eosinophils % (Manual) 2.0 Basophils % (Manual) 1.0 Myelocytes % (Man) 1 Promyelocytes % (Man) 0 Nucleated RBC % 0 Metamyelocytes 0 Platelet Estimate Normal Sodium 140 Potassium 4.1 Chloride 100 Carbon Dioxide 35 H Anion Gap 5 L BUN 12 Creatinine 0.6 Creat Clearance w eGFR > 60 Random Glucose 101 Calcium 8.0 L Ferritin 242.126 Total Bilirubin 0.8 AST 110 H ALT 159 H Alkaline Phosphatase 172 H Total Protein 5.3 L Albumin 1.8 L Microbiology 05/19/17 04:33 Urine - Urine Clean Catch Urine Culture - Preliminary Lactose Fermenting Neg Bacilli 05/18/17 20:00 Blood - Peripheral Venous Blood Culture - Preliminary NO GROWTH OBTAINED AFTER 48 HOURS, INCUBATION TO CONTINUE FOR 3 DAYS. 05/18/17 19:30 Blood - Peripheral Venous Blood Culture - Preliminary NO GROWTH OBTAINED AFTER 48 HOURS, INCUBATION TO CONTINUE FOR 3 DAYS. ASSESSMENT AND PLAN: 71 yof with HTN, hypothyroidism, s/p elective lumbosacral laminectomies/ Decompression with spinal instrumentation 05/14 -Lumbar stenosis s/p lumbosacral laminectomies/decompression with spinral instrumentation 05/14/2017 -POst operative fever -Acute blood loss anemia from surgery, s/p 2 units PRBC 05/14 -Abnormal LFTS -HTN -Hypothyroidism -Constipation Plan: Spine input noted, PT/back brace and activity per them. Dilaudid CONTENT ASSISTANT d/erik. D/c IV dilaudid. COntinue PO oxycodone prn. No further fevers, ID input noted. Cultures, CXR, urinalysis neg so far. Abnormal LFTs, suspect per-operative from anesthesia/narcotics. No abdominal symptoms, tolerating diet well. Abdominal ultrasound with hepatomegaly, check Hep panel. Trend for now, GI input if fails to resolve over 24-48 hours Incentive spirometry. H/h stabilized. follow up FOBT and iron panel.; Trend CBC for now. Amlodipine resumed. Hold lipitor for now. Continue levothyroxine DVTPPX per surgery. PT eval and dispo planning. Anticipate in 2-3 days if no further fevers, and continues to improve and no hepatic concerns. PLan discussed with patient in detail, all questions answered.
--- NOTE | 2017-05-21 14:33 | PN ---
Progress Note (short form) - Note Progress Note: 1Week staus post op Walking in the hallway. Feeling well. Apyrexial No significant pain in Leg /Back Wound dry. Neuro All at baseline PLAN PT Mobilize PAin Mx D/C planning
--- NOTE | 2017-05-21 15:32 | PN ---
Physical Exam: SUBJECTIVE: Patient seen and examined. No acute events overnight. Offers no new complaints. Says she still experiences some back pain but its better today. Denies sob, chest pain, dizziness, nausea, vomiting, fevers. OBJECTIVE: Vital Signs Period Temp Pulse Resp BP Sys/Burgess Pulse Ox Last 24 Hr 98.8 F-99.7 F 73-88 20-20 114-119/57-64 90 GENERAL: The patient is awake, alert, and fully oriented, in no acute distress. HEAD: Normal with no signs of trauma. EYES: PERRL, extraocular movements intact, sclera anicteric, conjunctiva clear. No ptosis. ENT: oropharynx clear without exudates, moist mucous membranes. NECK: supple. LUNGS: Breath sounds equal, clear to auscultation bilaterally, no wheezes, no crackles, no accessory muscle use. HEART: Regular rate and rhythm, S1, S2 without murmur, rub or gallop. ABDOMEN: Soft, nontender, nondistended, normoactive bowel sounds, no guarding, no rebound, no hepatosplenomegaly, no masses. EXTREMITIES: 2+ pulses, warm, well-perfused, no edema. 5/5 strength throughout b /l NEUROLOGICAL: Cranial nerves II through XII grossly intact. Sensation intact b/ l throughout. PSYCH: Normal mood, normal affect. Laboratory Results - last 24 hr 05/21/17 05/21/17 05/21/17 06:30 06:30 06:30 WBC 7.6 RBC 3.10 L Hgb 9.4 L Hct 28.5 L MCV 91.8 MCH 30.3 MCHC 33.1 RDW 14.6 Plt Count 280 D MPV 7.5 Neutrophils % No Result Required. Neutrophils % (Manual) 61.6 Band Neutrophils % 0.0 Lymphocytes % No Result Required. Lymphocytes % (Manual) 25.3 Monocytes % (Manual) 7 Eosinophils % (Manual) 2.0 Basophils % (Manual) 1.0 Myelocytes % (Man) 1 Promyelocytes % (Man) 0 Nucleated RBC % 0 Metamyelocytes 0 Platelet Estimate Normal Sodium 140 Potassium 4.1 Chloride 100 Carbon Dioxide 35 H Anion Gap 5 L BUN 12 Creatinine 0.6 Creat Clearance w eGFR > 60 Random Glucose 101 Calcium 8.0 L Ferritin 242.126 Total Bilirubin 0.8 AST 110 H ALT 159 H Alkaline Phosphatase 172 H Total Protein 5.3 L Albumin 1.8 L Active Medications Generic Name Dose Route Start Last Admin Trade Name Freq PRN Reason Stop Dose Admin Acetaminophen 650 mg 05/18/17 17:55 05/18/17 18:09 Tylenol - PO 650 mg Q6H PRN Administration FEVER Amlodipine Besylate 5 mg 05/20/17 22:00 05/20/17 22:15 Norvasc - PO 5 mg HS VALENTINO Administration Bisacodyl 10 mg 05/20/17 13:49 Dulcolax Suppository - RC DAILY PRN CONSTIPATION Docusate Sodium 100 mg 05/19/17 22:00 05/21/17 11:13 Colace - PO 100 mg BID VALENTINO Administration Gabapentin 300 mg 05/19/17 22:00 05/21/17 11:14 Neurontin - PO 300 mg BID VALENTINO Administration Levothyroxine Sodium 100 mcg 05/18/17 07:00 05/21/17 06:17 Synthroid - PO 100 mcg DAILY@0700 VALENTINO Administration Ondansetron HCl 4 mg 05/17/17 15:53 Zofran Injection IVPUSH Q6H PRN NAUSEA AND/OR VOMITING Oxycodone HCl 5 mg 05/20/17 13:54 Roxicodone - PO Q4H PRN PAIN LEVEL 1-5 Oxycodone HCl 10 mg 05/20/17 13:56 05/21/17 11:25 Roxicodone - PO 10 mg Q4H PRN Administration PAIN LEVEL 4 - 6 Polyethylene Glycol 17 gm 05/20/17 10:00 05/21/17 11:13 Miralax (For Daily Use) - PO 17 gm DAILY VALENTINO Administration Senna 1 tab 05/17/17 15:53 05/20/17 22:16 Senna - PO 1 tab Q12H PRN Administration CONSTIPATION ASSESSMENT/PLAN: pt is a 71 year old female with a PMH of HTN, hypothyroidism, spinal stenosis s /p L2-S1 laminectomies and posterior decompression and spinal fusion 05/14 #S/P Spinal Surgery -T4-Pelvis fusion post lumbar interbody fusion -post-op Day 7 -incentive spirometry -Dilaudid CAKE WASHER d/c, IV dilaudid D/c -Cont. Oxycodone PRN -Physical therapy #Abnormal LFT's -suspect from anesthesia (surgery) and narcotics -No abdominal symptoms -Abd U/S: Fatty liver, mild diffuse fatty infiltration of liver, small pleural effusion -FU hep panel -Monitor LFTs #Post Op Fever -improved -currently afebrile -likely secondary to UTI -Ucx: Strep Agalactaie #Constipation -likely opiate induced -Senna -Dulcolax -Miralax #Hypomagnesemia repleted, will monitor #Hypophosphatemia; -repleted, will follow #HTN: -cont. Amlodipine #Hypothyroidism: -continue home med Synthroid 100 mcg qd #HDL: -continue Lipitor 20 mg qd #DVT PPX; -mechanical prophylaxis only -SCDs #FEN: -No IV fluids -Replete as needed -Sodium controlled diet Visit type - Emergency Visit Emergency Visit: Yes ED Registration Date: 05/14/17 Care time: The patient presented to the Emergency Department on the above date and was hospitalized for further evaluation of their emergent condition. - New Patient This patient is new to me today: No - Critical Care Critical Care patient: No
[2017-05-21] MEDS: amLODIPine BESYLATE 5 MG TABLET (FP) PO SCH (23:06)
[2017-05-22] MEDS: oxyCODONE HCL 5 MG TABLET PO PRN ×3 (02:12→16:45)
[2017-05-22 06:06] LABS: SERUM IRON SATURATION 12 % (15-55); TOTAL IRON BINDING CAPACITY 160 ug/dL (250-450); UIBC 141 ug/dL (118-369)
[2017-05-22] MEDS: LEVOTHYROXINE NA 100 MCG TABLET (FP) PO SCH (06:53)
[2017-05-22 08:01] LABS: ANION GAP 7 (8-16); BLOOD UREA NITROGEN 13 mg/dL (7-18); CALCIUM 7.7 mg/dL (8.5-10.1); CHLORIDE 98 mmol/L (98-107); CO2 33 mmol/L (21-32); GLUCOSE,RANDOM 82 mg/dL (74-106); MAGNESIUM 1.9 mg/dL (1.8-2.4); POTASSIUM 3.8 mmol/L (3.5-5.1); SODIUM 138 mmol/L (136-145)
[2017-05-22 08:04] LABS: ALK PHOS 180 U/L (45-117); BILIRUBIN,DIRECT 0.2 mg/dL (0.0-0.2); BILIRUBIN,TOTAL 0.7 mg/dL (0.2-1.0); CREATININE 0.5 mg/dL (0.55-1.02); PHOSPHOROUS 3.2 mg/dL (2.5-4.9); SGOT/AST 91 U/L (15-37); SGPT/ALT 152 U/L (12-78); TOT PROT 5.3 g/dl (6.4-8.2)
[2017-05-22 08:16] LABS: HEMATOCRIT 27.8 % (32.4-45.2); HEMOGLOBIN 9.4 GM/dL (10.7-15.3); MCH 30.9 pg (25.7-33.7); MCHC 33.9 g/dl (32.0-36.0); MEAN PLT VOLUME 7.8 fl (7.5-11.1); PLATELET COUNT 321 K/MM3 (134-434); RBC 3.06 M/mm3 (3.60-5.2); RDW 14.1 % (11.6-15.6); WHITE BLOOD COUNT 8.3 K/mm3 (4.0-10.0)
[2017-05-22] MEDS ORDERED: PT OWN MED DRAWER 7, Y5N ONE (09:15)
[2017-05-22] MEDS: DOCUSATE SODIUM 100 MG CAPSULE (FP) PO SCH (09:27)
[2017-05-22] MEDS: GABAPENTIN 300 MG CAPSULE (FP) PO SCH (09:28)
[2017-05-22] MEDS: POLYETHYLENE GLYCOL 3350 119 GM BTL PO SCH (09:28)
[2017-05-22 12:16] LABS: PLATELET ESTIMATE ADEQUATE
--- NOTE | 2017-05-22 15:07 | PN ---
Teaching Attending Note Name of Resident: Rola Mathews ATTENDING PHYSICIAN STATEMENT I saw and evaluated the patient. I reviewed the resident's note and discussed the case with the resident. I agree with the resident's findings and plan as documented. SUBJECTIVE:c/o pain in the back which improves with pain medication. denies Cp, SOB, fever, chills, N/V/C/D OBJECTIVE: Last Vital Signs Temp Pulse Resp BP Pulse Ox 99.4 F 79 18 97/54 98 05/22/17 08:15 05/22/17 08:15 05/22/17 08:15 05/22/17 08:15 05/21/17 21:00 General NAD CV S1 S2 RRR back mid-spine incision with dorian. bandage in lumbrasacral area c/d/i ASSESSMENT AND PLAN: 71 yo F with HTN, hypothyroidism, s/p elective lumbosacral laminectomies/ Decompression with spinal instrumentation 05/14 1. Lumbar stenosis s/p lumbosacral laminectomies/decompression with spinal instrumentation 05/14/2017-further management per ortho. pain controlled. TLSO brace. PT 2. Post-op fever- likely atelecatsis. sepsis workup negative. monitored off abx. ID on board. Urine Cx likely contaminate. will not treat 3. Transaminitis- possible hypotension vs anesthesia. u/s done showing fatty liver, no extra/intra hepatic duct dilation. LFT stable. hepatitis panel pending. can continue further monitoring as outpatient.hold statin 4. iron def anemia- start iron supplemnts. s/p 2 units PRBC this admission. no further txn needed at this time. repeat iron panel in 3 months 5. HTN- intermittently hypotensive. sometimes has dizzyness that coincides with low BP. will d/c norvasc. SBP 130's on my exam 6. constipation- BM 2 days ago. cont stool softeners 7. hypothyroid- cont LT4 8. DVT ppx- SCD 9. medically optimized for discharge to [facility] placement. awaiting bed availability.
[2017-05-22 16:12] VITALS: BP 120/80; PULSE 70; TEMP 98.2
--- NOTE | 2017-05-22 16:35 | DS ---
Physical Exam: SUBJECTIVE: Patient seen and examined. No acute events overnight. Patient is still complaining of back pain, which she says is controlled with pain meds. She denies SOB, nausea, vomiting, dizziness, chest pain, and lightheadedness. OBJECTIVE: Vital Signs Period Temp Pulse Resp BP Sys/Burgess Pulse Ox Last 24 Hr 98.2 F-100 F 70-88 16-20 97-127/54-80 98 PHYSICAL EXAM GENERAL: The patient is awake, alert, and fully oriented, in no acute distress. HEAD: Normal with no signs of trauma. EYES: PERRL, extraocular movements intact, sclera anicteric, conjunctiva clear. No ptosis. ENT: oropharynx clear without exudates, moist mucous membranes. NECK: supple. LUNGS: Breath sounds equal, clear to auscultation bilaterally, no wheezes, no crackles, no accessory muscle use. HEART: Regular rate and rhythm, S1, S2 without murmur, rub or gallop. ABDOMEN: Soft, nontender, nondistended, normoactive bowel sounds, no guarding, no rebound, no hepatosplenomegaly, no masses. EXTREMITIES: 2+ pulses, warm, well-perfused, no edema. 5/5 strength throughout b /l Back: Limited exam due to back pain. Unable to assess ROM. Dressing at surgical site. NEUROLOGICAL: Cranial nerves II through XII grossly intact. Sensation intact b/ l throughout. PSYCH: Normal mood, normal affect. LABS Laboratory Results - last 24 hr 05/21/17 05/22/17 05/22/17 06:30 06:00 06:00 WBC 8.3 RBC 3.06 L Hgb 9.4 L Hct 27.8 L MCV 91.0 MCH 30.9 MCHC 33.9 RDW 14.1 Plt Count 321 MPV 7.8 Total Counted 100 Neutrophils % No Result Required. Neutrophils % (Manual) 65.0 Lymphocytes % No Result Required. Lymphocytes % (Manual) 13.0 D Monocytes % (Manual) 18 H* D Basophils % (Manual) 1.0 Metamyelocytes 1 D Platelet Estimate Adequate Sodium 138 Potassium 3.8 Chloride 98 Carbon Dioxide 33 H Anion Gap 7 L BUN 13 Creatinine 0.5 L Creat Clearance w eGFR > 60 Random Glucose 82 Calcium 7.7 L Phosphorus 3.2 Magnesium 1.9 Iron 19 L TIBC 160 L Iron Saturation 12 L Total Bilirubin 0.7 Direct Bilirubin 0.2 AST 91 H ALT 152 H Alkaline Phosphatase 180 H Total Protein 5.3 L Albumin 2.0 L HOSPITAL COURSE: Date of Admission:05/14/17 Pt is a 71 year old female with a PMH of HTN, hypothyroidism, spinal stenosis s/ p L2-S1 laminectomies and posterior decompression and spinal fusion. Patient is post op day 8. Patient was started on Dilaudid [employer] pump which was recently d/c. Pain currently well controlled with Oxycodone PRN. Patient developed post-op fever (Day 5) of 101.2 which has then resolved. Patient also developed constipation which was likely opiate induced which resolved with medications. Patient was also found to have elevated LFT's which was likely from narcotic or anesthesia. Patient agreed to follow up outpatient to trend LFTs with PCP. Patient also with iron def anemia-start iron supplemnts. s/p 2 units PRBC this admission. repeat iron panel in 3 months. Patient overall clinically improved and is medically cleared for discharge to subacute rehab. Patient will follow up with her PCP and orthopaedic surgeon in 1 week. Date of Discharge: 05/22/17 Minutes to complete discharge: 35 Discharge Summary Reason For Visit: IDIOPATHIC SCOLIOSIS Current Active Problems Hypertension (Acute) Hypothyroidism (Acute) S/P laminectomy (Acute) Scoliosis (Acute) Condition: Stable - Instructions Diet, Activity, Other Instructions: You were here because of Back surgery. You were started on iron supplements. This along with your pain medication can both cause constipation. increase your fluid and fiber in your diet and ensure you are having daily bowel movements. Take stool softeners as needed to accomplish this. You will need to follow up with your primary care physician in 1 week. You should have your liver enzymes repeated in a week to see if they are improving. You should also have your iron studies repeated in 3 months to determine if they are still needed. Your home medications have changed. refer to medication list for these changes. You must also follow up with your orthopedic surgeon in 1 week. If you develop any chest pain, new fevers, chills, night sweats, dizziness, or shortness of breath, call your doctor immediately or go to the nearest emergency room. Referrals: Lauri Connors MD [Staff Physician] - 1 Week Disposition: [facility] - Home Medications Comprehensive Discharge Medication List: Ambulatory Orders Calcium Carbonate [Calcium] 1,200 mg PO DAILY 05/03/17 Cholecalciferol (Vitamin D3) [Vitamin D3] 50,000 unit PO WEEKLY 05/03/17 Levothyroxine [Synthroid -] 100 mcg PO DAILY 05/03/17 Acetaminophen [Tylenol .Regular Strength -] 650 mg PO Q6H PRN tablet 05/22/17 Bisacodyl Suppository [Dulcolax Suppository -] 10 mg RC DAILY PRN supp.rect Docusate Sodium [Colace -] 100 mg PO BID capsule 05/22/17 Ferrous Sulfate [Feosol] 325 mg PO BIDWM #60 ud 05/22/17 Gabapentin [Neurontin -] 300 mg PO BID capsule 05/22/17 Ondansetron Injection [Zofran Injection] 4 mg IVPUSH Q6H PRN vial 05/22/17 Polyethylene Glycol 3350 [Miralax 119 gm Btl -] 17 gm PO DAILY bottle 05/22/17 oxyCODONE HCL [Roxicodone -] 5 mg PO Q4H PRN tablet MDD 20 05/22/17 oxyCODONE HCL [Roxicodone -] 10 mg PO Q4H PRN tablet MDD 40 05/22/17 This patient is new to me today: No Emergency Visit: Yes ED Registration Date: 05/14/17 Care time: The patient presented to the Emergency Department on the above date and was hospitalized for further evaluation of their emergent condition. Critical Care patient: No - Discharge Referral Referred to [facility] No
[2017-05-22] MEDS ORDERED: FERROUS SO4 325 MG TABLET (FP) PO SCH (17:30)
== END 2017-05-22 20:03 | DRG 460 ==
LOC: JSAMEDAYSX 10:24 → EDSTATUS 12:00 → JICU 05-15 00:58 → J8W 05-17 15:46
PROVIDERS: ADMIT Orthopaedic Surgery Orthopaedic Surgery of the Spine; ATTEND Internal Medicine
PROC: 0SG1071 Fusion of 2 or more Lumbar Vertebral Joints with Autologous Tissue Substitute, Posterior Approach, Posterior Column, Open Approach (ICD-10-PCS; 2017-05-14)
PROC: 30233N1 Transfusion of Nonautologous Red Blood Cells into Peripheral Vein, Percutaneous Approach (ICD-10-PCS; 2017-05-14)
PROC: 0QB00ZZ Excision of Lumbar Vertebra, Open Approach (ICD-10-PCS; principal; 2017-05-14 12:00)
DX: M48.061 Spinal stenosis, lumbar region without neurogenic claudication (principal); J98.11 Atelectasis; M41.9 Scoliosis, unspecified; G57.20 Lesion of femoral nerve, unspecified lower limb; E83.42 Hypomagnesemia; E83.39 Other disorders of phosphorus metabolism; E03.9 Hypothyroidism, unspecified; I10 Essential (primary) hypertension; E78.5 Hyperlipidemia, unspecified; D50.9 Iron deficiency anemia, unspecified; K59.00 Constipation, unspecified
CPT/HCPCS: 36415; 36430; 36511; 71045-TC-FY; 76700-TC; 80048; 80053; 80076; 81003; 82728; 83540; 83550; 83735; 84100; 85025; 85027; 86850; 86900; 86901; 86922; 87040; 87086; 87186; 94010; 94760; 97116-GP; 97161-GP; J1170; J1644; P9038; P9058